=== PATIENT | female | born 1955 | race Caucasian/White ===

== ENCOUNTER → 2021-09-02 10:51 | Outpatient (BNVA) | payer OTHER, SELFPAY | PROVIDERS: PCP Physician Assistant; Visit Provider Obstetrics & Gynecology ==

== ENCOUNTER → 2021-11-25 09:30 | Outpatient (BNVA) | payer OTHER, SELFPAY | PROVIDERS: PCP Physician Assistant; Referring Provider Physician Assistant; Visit Provider Nurse Practitioner Family | DX: Z12.11 Encounter for screening for malignant neoplasm of colon (principal); K58.0 Irritable bowel syndrome with diarrhea | CPT/HCPCS: 99202 ==

== ENCOUNTER 2022-02-22 15:44 | Outpatient (REF) | payer OTHER, SELFPAY ==
[2022-02-22 16:40] LABS: Estimated Average Glucose 120 mg/dL; Hemoglobin A1c % 5.8 %
[2022-02-22 16:46] LABS: Hematocrit 38.3 % (37.0-47.0); Hemoglobin 12.8 g/dl (12.0-16.0); Mean Corpuscular HGB Conc 33.4 g/dl (31.0-35.0); Mean Corpuscular Hemoglobin 27.9 pg (27.0-33.0); Mean Corpuscular Volume 83.4 fL (80.0-98.0); Mean Platelet Volume 10.5 fL (9.4-12.3); Platelet Count 278 X10*3/uL (160-400); Red Blood Count 4.59 X10*6/uL (4.20-5.50); Red Cell Distribution Width 13.3 % (11.0-16.0); White Blood Count 6.6 X10*3/uL (4.8-10.8)
[2022-02-22 16:53] LABS: INTERNATIONAL NORM RATIO 1.1 (0.9-1.1)
[2022-02-22 17:03] LABS: Alanine Aminotransferase 14 U/L (0-31); Albumin Level 3.8 g/dL (3.5-5.0); Alkaline Phosphatase 94 U/L (39-117); Anion Gap 12 (12-20); Aspartate Amino Transferase 16 U/L (5-31); Bilirubin Total 0.5 mg/dL (0.0-1.0); Blood Urea Nitrogen 21 mg/dL (9-16); Calcium 8.9 mg/dL (8.4-10.2); Carbon Dioxide 25 mmol/L (22-29); Chloride 107 mmol/L (96-108); Cholesterol 134 mg/dL; Estimated Glomerular Filt Rate > 60; Glucose Fasting 126 mg/dL (60-99); HDL Cholesterol 44 mg/dL; LDL Cholesterol Calculated 77 mg/dl; Potassium 3.7 mmol/L (3.3-5.1); Sodium 140 mmol/L (135-145); Total Protein 6.4 g/dL (6.5-8.0); Triglycerides 69 mg/dL
[2022-02-22 17:26] LABS: TSH reflex Free T4 0.22 uIU/mL (0.32-4.0)
[2022-02-22 18:08] LABS: Free T4 (Free Thyroxine) 1.02 ng/dL (0.71-1.85)
== END 2022-02-22 15:45 | disposition home or self-care (01) ==
LOC: HO.LAB 15:44
PROVIDERS: PCP Physician Assistant; Visit Provider Physician Assistant
DX: Z01.818 Encounter for other preprocedural examination (principal); E04.1 Nontoxic single thyroid nodule; E78.2 Mixed hyperlipidemia; I10 Essential (primary) hypertension
CPT/HCPCS: 36415; 80048; 80053; 80061; 83036; 84439; 84443; 85027; 85610

== ENCOUNTER 2022-12-31 13:05 | Outpatient (REF) | payer MEDICARE, SELFPAY ==
--- NOTE | ~2022-12-31 | MM_ITS ---
EXAMINATION: MM SCREENING DIGITAL BREAST TOMOSYNTHESIS, BILATERAL CLINICAL INFORMATION: Screening. Asymptomatic. The lifetime risk of breast cancer based on the Tyrer-Cuzick Model is 9%. COMPARISON: Mammography: 12/12/2019 (new baseline) TECHNIQUE: Digital breast tomosynthesis is performed in both the craniocaudal and mediolateral oblique views along with computer-aided detection (CAD). Synthesized 2D images are generated from the tomosynthesis. Additional left CC view is provided. FINDINGS: There are scattered areas of fibroglandular density (ACR BI-RADS breast composition Category b). There are no significant masses, abnormal calcifications, or other abnormalities. Parenchymal pattern is similar to prior new baseline exam. There is no developing density or architectural abnormality. Again, there is biopsy clip marker mid upper outer left breast. The axilla and skin contours are unremarkable. No significant changes. MM/MM tomosynthesis screening BI IMPRESSION: No mammographic evidence of malignancy. ASSESSMENT: BI-RADS 1: Negative RECOMMENDATION: Routine annual mammography screening. This patient's information was entered into a reminder system with a target due date for their next mammogram.
== END 2022-12-31 13:06 | disposition home or self-care (01) ==
LOC: HO.MAMMO 13:05
PROVIDERS: PCP Physician Assistant; Visit Provider Physician Assistant
DX: Z12.31 Encounter for screening mammogram for malignant neoplasm of breast (principal)
CPT/HCPCS: 77063; 77067

== ENCOUNTER 2023-01-11 19:19 | Emergency (ER) | payer MEDICARE, SELFPAY ==
[2023-01-11 19:53] VITALS: BP 145/81; PULSE 66; RESP 16; TEMP 36.7; O2SAT 96; BMI 34.4
--- NOTE | 2023-01-11 19:55 | ED_ITS ---
HPI - General Adult General Chief complaint: General Medical <LOUISE Adams - Last Filed: 01/11/23 19:58> Stated complaint: Facial swelling <LOUISE Adams - Last Filed: 01/11/23 19:58> Time Seen by Provider: 01/12/23 00:43 <LOUISE Adams - Last Filed: 01/11/23 19:58> Source: patient, RN notes reviewed and old records reviewed <Danny Self - Last Filed: 01/12/23 01:20> Mode of arrival: ambulatory <Danny Self - Last Filed: 01/12/23 01:20> Limitations: no limitations <Danny Self - Last Filed: 01/12/23 01:20> History of Present Illness HPI narrative: 67-year-old female past medical history significant for hypertension, polyarthralgias, hypothyroidism, hyperlipidemia presents for evaluation of reported facial swelling Patient reports that her primary doctor started her on meloxicam 4 days ago She reports that she looked in the mirror today and felt as though she had swelling in between her eyebrows and underneath both eyes. She also fell as if she has swelling to the left side of her neck No difficulty breathing, swallowing She denies any other symptoms The patient reports that she had previously been on lisinopril but has not been on it for several years <Danny Self - Last Filed: 01/12/23 01:20> Related Data Home medications: Home Medications Medication Instructions Recorded Confirmed ketoconazole 2 % topical cream 1 appl topical DAILY 08/21/20 12/29/22 Previous Rx's Medication Instructions Recorded diaper,brief,adult,disposable #14 ea 06/26/20 (Briefs, Adult-Extra Large) amlodipine 10 mg tablet 10 mg PO DAILY #90 tabs 06/24/22 aspirin 81 mg tablet,delayed 81 mg PO DAILY #90 tabs 06/24/22 release atorvastatin 20 mg tablet 20 mg PO DAILY #90 tabs 06/24/22 metoprolol succinate 25 mg 25 mg PO DAILY #90 tabs 06/24/22 tablet,extended release 24 hr paroxetine HCl 10 mg tablet 10 mg PO QAM #90 tabs 10/19/22 bisacodyl 5 mg tablet,delayed 10 mg PO ONCE 1 day #2 tabs 12/06/22 release (Dulcolax (bisacodyl)) polyethylene glycol 3350 17 238 g PO ONCE #238 grams 12/06/22 gram/dose oral powder (Miralax) fluticasone propionate 50 1 spray intranasal DAILY 30 days 12/29/22 mcg/actuation nasal #100 mL spray,suspension (Flonase Allergy Relief) meloxicam 15 mg tablet 15 mg PO DAILY #30 tabs 12/29/22 <LOUISE Adams - Last Filed: 01/11/23 19:58> Allergies/adverse reactions: Allergies Allergy/AdvReac Type Severity Reaction Status Date / Time lisinopril Allergy Unknown tachycardia Verified 12/29/22 14:40 <LOUISE Adams - Last Filed: 01/11/23 19:58> Review of Systems Review of Systems: Patient reports facial swelling <Danny Self - Last Filed: 01/12/23 01:20> Constitutional: Constitutional: Reports as per HPI, Denies chills, Denies fatigue, Denies fever(s) and Denies headache(s) <Danny Self - Last Filed: 01/12/23 01:20> ENT: Denies headache(s) <Danny Self - Last Filed: 01/12/23 01:20> Cardiovascular: Cardiovascular: Denies chest pain and Denies dyspnea <Danny Self - Last Filed: 01/12/23 01:20> Respiratory: Respiratory: Denies cough and Denies dyspnea <Danny Self - Last Filed: 01/12/23 01:20> Gastrointestinal: Gastrointestinal: Denies abdominal pain, Denies constipation and Denies vomiting <Danny Self - Last Filed: 01/12/23 01:20> Genitourinary: Genitourinary: Denies dysuria <Danny Self - Last Filed: 01/12/23 01:20> Neurologic: Denies headache(s) and Denies focal weakness <Danny Self - Last Filed: 01/12/23 01:20> Endocrine: Endocrine: Denies fatigue <Danny Self - Last Filed: 01/12/23 01:20> PMFSH Past Medical History Medical History: Medical History Anxiety COVID-19 vaccine series completed Depression with anxiety Elevated cholesterol Hepatitis C HTN (hypertension) IBS (irritable bowel syndrome) Thyroid nodule <LOUISE Adams - Last Filed: 01/11/23 19:58> Surgical History: Surgical History History of removal of cyst Ruptured tubal <LOUISE Adams - Last Filed: 01/11/23 19:58> Family History Family History: Family History Father CHF (congestive heart failure) Diabetes Hypertension Skin cancer Mother Diabetes Hypertension Fibromyalgia Maternal Grandmother TIA (transient ischemic attack) Alzheimers disease Mental health disorder <LOUISE Adams - Last Filed: 01/11/23 19:58> Social History Social History: Social History Housing: House Alcohol intake: never Patient Tobacco Use Status: Never used Tobacco Tobacco use type: Cigarette e-Cigarette/Vaping Use: Never Used Second Hand Smoke Exposure: No Advance Directives: No Advance Directives Information Provided: No service: No Current occupational status: employed Cognitive needs: No Hearing needs: No Vision needs: No <LOUISE Adams - Last Filed: 01/11/23 19:58> Physical Exam ED Vital Signs: Vital Signs - 24 hr 01/11/23 19:53 01/11/23 21:50 Temperature 98.0 F 97.9 F Pulse Rate 66 70 Respiratory Rate 16 18 Blood Pressure 145/81 H 159/66 H Pulse Oximetry 96 98 Oxygen Delivery Method Room Air Room Air BMI result Body Mass Index 34.4 <LOUISE Adams Last Filed: 01/11/23 19:58> Vital Signs - 24 hr 01/11/23 19:53 01/11/23 21:50 Temperature 98.0 F 97.9 F Pulse Rate 66 70 Respiratory Rate 16 18 Blood Pressure 145/81 H 159/66 H Pulse Oximetry 96 98 Oxygen Delivery Method Room Air Room Air BMI result Body Mass Index 34.4 < Last Filed: 01/12/23 01:20> Const Other: No objective findings of edema to the face or neck in the area of the patient's concern. No oral, perioral or retropharyngeal edema < Last Filed: 01/12/23 01:20> General: healthy appearing, comfortable, no acute distress, alert and awake < Last Filed: 01/12/23 01:20> Nutritional Appearance: well nourished < Last Filed: 01/12/23 01:20> Orientation/consciousness: patient oriented x3 < Last Filed: 01/12/23 01:20> HENMT Head: Yes normocephalic and Yes atraumatic < Last Filed: 01/12/23 01:20> Throat: Yes posterior oropharynx normal < Last Filed: 01/12/23 01:20> Eyes Eyelids: Yes eyelids normal < Last Filed: 01/12/23 01:20> Conjunctivae: conjunctivae normal < Last Filed: 01/12/23 01:20> Sclerae: sclerae normal < Last Filed: 01/12/23 01:20> Corneas: corneas normal < Last Filed: 01/12/23 01:20> Pupils: Equal, round and reactive pupils present < Last Filed: 01/12/23 01:20> EOM: EOMs intact bilaterally < Last Filed: 01/12/23 01:20> Neck Neck: Yes full ROM < Last Filed: 01/12/23 01:20> Resp Effort & Inspection: normal respiratory effort, able to speak in complete sentences, no audible wheezes, not labored and no stridor < Last Filed: 01/12/23 01:20> Auscultation: clear to auscultation bilaterally < Last Filed: 01/12/23 01:20> Cardio Rate: regular rate <Danny Self - Last Filed: 01/12/23 01:20> Rhythm: regular rhythm <Danny Self - Last Filed: 01/12/23 01:20> GI Inspection: No distended <Danny Self Last Filed: 01/12/23 01:20> Palpation (GI): Soft to palpation, not firm, nontender, no guarding and not rigid <Danny Self - Last Filed: 01/12/23 01:20> Auscultation: normoactive bowel sounds <Danny Self - Last Filed: 01/12/23 01:20> Skin General skin exam: no rashes or lesions noted and elasticity normal <Dannyelva Self Last Filed: 01/12/23 01:20> Neuro General: patient oriented x3 <Danny Self - Last Filed: 01/12/23 01:20> Cranial nerves: Yes CN's II-XII intact bilaterally, Yes Equal, round and reactive pupils present and Yes Bilaterally intact EOM present <Danny Self - Last Filed: 01/12/23 01:20> Cognition (Neuro): normal cognition <Danny Self Last Filed: 01/12/23 01:20> Extrem Other: Moving all extremities well without any obvious deformities <Danny Self Last Filed: 01/12/23 01:20> Course Course Course Narrative: RME - 67-year-old female with history of HTN, HLD, obesity, polyarthralgia, anxiety who presents to the ER for evaluation of generalized facial swelling that she noticed earlier today. She also reports a full sensation of her supraclavicular area. No oral swelling but feels abnormality in her jaw, no dental pain. She reports recently being started on meloxicam by her doctor. She has been taking it for 4 days. She is worried because label said not to mix with her paroxitine. No appreciatd swelling in triage. Airway patent. Likely anxiety related? re-evaluate in EM <LOUISE Adams - Last Filed: 01/11/23 19:58> Medical Decision Making Medical Decision Making MDM Narrative: [age] female presents for evaluation of reported facial swelling. I do not appreciate any facial swelling on exam. The triage provider also did not notice any appreciable facial swelling. She has been in the ER for over 5 hours. Airway is widely patent, no difficulty breathing or swallowing. At this time for the patient is safe for discharge. I advised the patient to stop taking her meloxicam and follow-up with her PCP <Danny Self - Last Filed: 01/12/23 01:20> Differential Diagnosis Facial swelling Allergic reaction Anaphylaxis Angioedema <Danny Self - Last Filed: 01/12/23 01:20> Discharge Plan Discharge Clinical Impression: Facial swelling <LOUISE Adams - Last Filed: 01/11/23 19:58> Patient Disposition: Home, Self-Care <LOUISE Adams - Last Filed: 01/11/23 19:58> Instructions: General Allergic Reaction (ED) <LOUISE Adams - Last Filed: 01/11/23 19:58> Additional Instructions: Your physical exam has no evidence of anaphylaxis or angioedema. If you feel that you are having facial swelling related to meloxicam, you should stop taking the meloxicam You may take Benadryl if he notice any further swelling, itching or rash Return to the ER if he develop any difficulty breathing or swallowing <LOUISE Adams - Last Filed: 01/11/23 19:58> Prescriptions: No Action (DME) Briefs, Adult-Extra Large Misc See Rx Instructions .ROUTE .MEDSUPPLY Qty: 14 2RF Rx Instructions: As directed paroxetine HCl 10 mg tablet 10 mg PO QAM Qty: 90 1RF bisacodyl [Dulcolax (bisacodyl)] 5 mg tablet,delayed release (DR/EC) 10 mg PO ONCE 1 Days Qty: 2 0RF Rx Instructions: take 2 tabs at noon the day before your colonoscopy polyethylene glycol 3350 [Miralax] 17 gram/dose powder 238 g PO ONCE Qty: 238 0RF Rx Instructions: As directed by gastroenterology department at [facility] ketoconazole 2 % cream 1 appl topical DAILY amlodipine 10 mg tablet 10 mg PO DAILY Qty: 90 1RF atorvastatin 20 mg tablet 20 mg PO DAILY Qty: 90 1RF aspirin 81 mg tablet,delayed release (DR/EC) 81 mg PO DAILY Qty: 90 1RF metoprolol succinate 25 mg tablet extended release 24 hr 25 mg PO DAILY Qty: 90 1RF meloxicam 15 mg tablet 15 mg PO DAILY Qty: 30 3RF fluticasone propionate [Flonase Allergy Relief] 50 mcg/actuation spray,suspension 1 spray intranasal DAILY 30 Days Qty: 100 3RF Rx Instructions: administer into each nostril <LOUISE Adams - Last Filed: 01/11/23 19:58>
[2023-01-11 21:50] VITALS: BP 159/66; PULSE 70; RESP 18; TEMP 36.6; O2SAT 98
--- NOTE | 2023-01-11 22:46 | PC.NURSE ---
pt resting quietly at this timw, airway patent, managing own secretions, SpO2 98% on RA. pt awaiting ED provider assignment
[2023-01-12] VITALS: BP 129/75; PULSE 68; RESP 16; TEMP 36.9; O2SAT 94
--- NOTE | 2023-01-12 02:12 | PC.NURSE ---
pt has no swelling to the face, or oral airway visablly pt is talking in full sentences, no s/s of distress and feels ready for discharge. steady giat. skin pink warm and dry.
== END 2023-01-12 02:15 | disposition home or self-care (01) ==
PROVIDERS: Emergency Provider Emergency Medicine; PCP Physician Assistant
DX: R22.9 Localized swelling, mass and lump, unspecified (principal); Z79.899 Other long term (current) drug therapy
CPT/HCPCS: 99282; 99283

== ENCOUNTER → 2023-02-16 14:42 | Outpatient (BNVA) | payer MEDICARE, SELFPAY | PROVIDERS: PCP Physician Assistant; Visit Provider Obstetrics & Gynecology ==

== ENCOUNTER 2023-02-24 10:31 | Outpatient (REF) | payer MEDICARE, SELFPAY ==
--- NOTE | ~2023-02-24 | XR_ITS ---
EXAMINATION: XR KNEE, RIGHT CLINICAL INFORMATION: Right knee pain. COMPARISON: None available. TECHNIQUE: Three views of the right knee. FINDINGS: Bones and soft tissues appear unremarkable. No fracture or joint effusion appreciated. Alignment is anatomic. Joint spaces appear maintained. No abnormal soft tissue calcification. XR/XR knee RT 3V IMPRESSION: Unremarkable plain film examination of the right knee.
--- NOTE | ~2023-02-24 | XR_ITS ---
EXAMINATION: XR HIP, LEFT CLINICAL INFORMATION: COMPARISON: None available. TECHNIQUE: Two views of the left hip. FINDINGS: Bones and soft tissues are normal. No fracture. Alignment is anatomic. Hip joint space is maintained. XR/XR hip LT min 2V IMPRESSION: Normal left hip.
--- NOTE | ~2023-02-24 | XR_ITS ---
EXAMINATION: XR HIP, RIGHT CLINICAL INFORMATION: Right hip pain. COMPARISON: None available. TECHNIQUE: Two views of the right hip. FINDINGS: Bones and soft tissues are normal. No fracture. Alignment is anatomic. Hip joint space is maintained. XR/XR hip RT min 2V IMPRESSION: Normal right hip.
--- NOTE | ~2023-02-24 | XR_ITS ---
EXAMINATION: XR KNEE, LEFT CLINICAL INFORMATION: Left knee pain. COMPARISON: None available. TECHNIQUE: Three views of the left knee. FINDINGS: Examination demonstrates mild osteoarthritis of the left knee predominantly involving the medial and patellofemoral compartments, with joint space narrowing and osteophyte formation. No suprapatellar fluid is seen. Amorphous calcification projects over the proximal fibular metaphysis. No acute fracture or dislocation is seen. XR/XR knee LT 3V IMPRESSION: Mild osteoarthritis of the left knee. Amorphous calcification of the proximal fibular metaphysis. Differential diagnosis includes, but is not limited to, enchondroma, bone infarct, etc.
== END 2023-02-24 10:32 | disposition home or self-care (01) ==
LOC: HO.XRAY 10:31
PROVIDERS: PCP Physician Assistant; Visit Provider Internal Medicine Rheumatology
DX: M25.551 Pain in right hip (principal); M25.552 Pain in left hip; M25.561 Pain in right knee; M25.562 Pain in left knee; M25.50 Pain in unspecified joint; M79.7 Fibromyalgia; G89.29 Other chronic pain; Z86.19 Personal history of other infectious and parasitic diseases
CPT/HCPCS: 73502; 73562; 99202

== ENCOUNTER 2023-02-24 12:09 | Outpatient (REF) | payer MEDICARE, SELFPAY ==
[2023-02-24 13:40] LABS: Hematocrit 39.4 % (37.0-47.0); Hemoglobin 13.2 g/dl (12.0-16.0); Mean Corpuscular HGB Conc 33.5 g/dl (31.0-35.0); Mean Corpuscular Volume 83.5 fL (80.0-98.0); Platelet Count 293 X10*3/uL (160-400); Red Blood Count 4.72 X10*6/uL (4.20-5.50); Red Cell Distribution Width 13.3 % (11.0-16.0); White Blood Count 6.3 X10*3/uL (4.8-10.8)
[2023-02-24 14:18] LABS: Erythrocyte Sedimentation Rate 23 MM/HR (0-20)
[2023-02-24 14:21] LABS: Alanine Aminotransferase 12 U/L (0-31); Albumin Level 3.8 g/dL (3.5-5.0); Alkaline Phosphatase 87 U/L (39-117); Anion Gap 16 (12-20); Aspartate Amino Transferase 16 U/L (5-31); Bilirubin Total 0.4 mg/dL (0.0-1.0); Blood Urea Nitrogen 16 mg/dL (9-16); C Reactive Protein 0.13 mg/dL (< or = 0.50); Calcium 9.3 mg/dL (8.4-10.2); Carbon Dioxide 26 mmol/L (22-29); Chloride 105 mmol/L (96-108); Cholesterol 134 mg/dL; Estimated Glomerular Filt Rate > 60; Glucose Fasting 105 mg/dL (60-99); HDL Cholesterol 49 mg/dL; LDL Cholesterol Calculated 73 mg/dl; Magnesium 1.5 mg/dL (1.6-2.6); Potassium 3.6 mmol/L (3.3-5.1); Sodium 143 mmol/L (135-145); Total Protein 6.6 g/dL (6.5-8.0); Triglycerides 63 mg/dL
[2023-02-24 14:35] LABS: TSH reflex Free T4 0.24 uIU/mL (0.32-4.0)
[2023-02-24 15:26] LABS: Free T4 (Free Thyroxine) 0.99 ng/dL (0.71-1.85)
== END 2023-02-24 12:10 | disposition home or self-care (01) ==
LOC: HO.10HDL 12:09
PROVIDERS: Physician Assistant; Visit Provider Internal Medicine Rheumatology
DX: M25.50 Pain in unspecified joint (principal); E78.2 Mixed hyperlipidemia; E04.1 Nontoxic single thyroid nodule
CPT/HCPCS: 36415; 80053; 80061; 83735; 84439; 84443; 85027; 85652; 86140

== ENCOUNTER 2023-05-02 13:35 | Outpatient (AMB) | payer MEDICARE, SELFPAY ==
--- NOTE | 2023-05-02 13:37 | MHC.PC.OV ---
Vital Signs 05/02/23 13:38 Height 5 ft 10 in Weight 243 lb 8 oz BMI 34.9 BP 122/86 Blood Pressure Location Lt brachial Position Sitting Pulse 74 Pulse Source Pulse Oximeter Pulse Oximetry (%) 95 Oxygen Delivery Method Room Air Intake Visit Reasons: Annual Exam Intake Note: Patient is here today for a physical. Fleet Manager Required: No Accompanied by: Self / Same As Patient Allergies meloxicam Allergy (Intermediate, Verified 05/02/23 13:50) swelling lisinopril Allergy (Unknown, Verified 05/02/23 13:50) tachycardia Medication List - Last Reconciled 05/02/23 by Aron Lambert PA-C amlodipine 10 mg PO DAILY aspirin 81 mg PO DAILY atorvastatin 20 mg PO DAILY bisacodyl (Dulcolax (bisacodyl)) 10 mg (2 x 5 mg) PO ONCE 1 day diaper,brief,adult,disposable (Briefs, Adult-Extra Large) As directed fluticasone propionate 50 mcg/actuation (Flonase Allergy Relief) 1 spray intranasal DAILY 30 days metoprolol succinate ER 25 mg PO DAILY paroxetine HCl 10 mg PO QAM polyethylene glycol 3350 (Miralax) 238 grams PO ONCE Tobacco use date assessed: 12/29/22 Fall risk assessment: No Falls in past year Last assessed Fall Risk: 05/02/23 Dental Screening Dental Screen Date: 05/02/23 Did you have a dental visit in the last 12 months?: Yes Did you have a dental problem in the last 6 months where you did not have access to dental care?: No Was dental information given to patient?: Patient has dentist HPI Annual Exam HPI Details Patient is a 67-year-old female here today for a Follow-up visit . Patient has a past medical history significant for essential hypertension, obesity, Thyroid nodule. .. -->Concerns Reports having bilateral knee pain over the last several months worsening. Also reports bilateral hip, wrist and hand pain .? She denies any trauma to her joints.? She does report at times having very swollen joints ? She does use Tylenol and naproxen with only little relief of her knee pain.? Has seen Rheumatology in x-rays showing normal hips though did have mild arthritis in her knees. She does report ports she was told she has fibromyalgia to which her mother also does have fibromyalgia as well. She is interested in aquatic therapy. CHRONIC MEDICAL CONDITIONS---> ? .. ? HTN: Report systolic below 130s. Denies any headaches, chest pain, shortness of breath. ? .. ? Anxiety: Report paxil 10mg is working great for her mood swings and agitation. . Obesity:? Has noted some weight loss since last office visit.? She does report she has been trying to work on diet to reduce her weight. ? .. ? Thyroid nodules:? Patient has lost follow-up with endocrinology. .? Most recent TSH at 0.22.? .? Breast cancer screening:? Mammogram done December 2022 BI-RADS 1 .. Colon cancer screening: Has upcoming appointment for colonoscopy Instrumentation Instructor: Had follow-up salesperson pianos and organs no further Pap smears needed. Vaccines:: Up-to-date with COVID vaccine, tetanus vaccine, considering shingles vaccine, needs pneumonia vaccine (declines at this time) Laboratory Tests 02/22/22 02/22/22 02/22/22 16:00 16:00 16:00 RBC 4.59 Hgb 12.8 ESR Creatinine 0.78 Fasting Glucose 126 H Hemoglobin A1c % 5.8 Cholesterol 134 LDL Cholesterol, C alc TSH 0.22 L Free T4 02/24/23 02/24/23 12:14 12:16 RBC Hgb ESR 23 H Creatinine 0.84 Fasting Glucose 105 H Hemoglobin A1c % Cholesterol 134 LDL Cholesterol, C alc 73 TSH 0.24 L Free T4 0.99 PFSH Medical History Anxiety COVID-19 COVID-19 vaccine series completed Depression with anxiety Elevated cholesterol Hepatitis C HTN (hypertension) IBS (irritable bowel syndrome) Onychomycosis Thyroid nodule Surgical History History of removal of cyst Ruptured tubal Family History Father CHF (congestive heart failure) Diabetes Hypertension Skin cancer Mother Diabetes Hypertension Fibromyalgia Maternal Grandmother TIA (transient ischemic attack) Alzheimers disease Mental health disorder Social History (Updated 05/02/23 @ 14:13 by Aron Lambert PA-C) Housing: House Alcohol intake: never Patient Tobacco Use Status: Never used Tobacco Tobacco use type: Cigarette e-Cigarette/Vaping Use: Never Used Second Hand Smoke Exposure: No service: No Current occupational status: disabled 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 Will Mckeon, Delia Loving, Guilherme Mchugh and colleagues, with an educational irvin from [employer]. Review of Systems Const Denies body aches, Denies chills, Denies excessive sweating, Denies fatigue, Denies fever(s) and Denies headache(s) Eyes Denies blurry vision ENT Denies dysphagia, Denies vertigo, Denies dizziness, Denies headache(s), Denies hearing loss and Denies tinnitus Card Denies chest pain, Denies chest pain with activity, Denies syncope, Denies irregular heart rhythm and Denies dyspnea Resp Denies chest congestion, Denies cough, Denies hemoptysis, Denies dyspnea and Denies wheezing GI Denies abdominal pain, Denies melena, Denies hematochezia, Denies coffee ground emesis, Denies dysphagia, Denies diarrhea, Denies nausea and Denies vomiting Denies urinary frequency, Denies dysuria, Denies urinary hesitancy and Denies urinary urgency Musc Denies arthralgias, Denies limited range of motion, Denies muscle cramps and Denies muscle weakness Skin/Breast Denies rash and Denies skin ulcer Neuro Denies Abnormal speech present, Denies confusion, Denies vertigo, Denies dizziness, Denies syncope, Denies headache(s), Denies memory loss and Denies seizure-like activity Psych Denies anxiety, Denies confusion, Denies depression, Denies memory loss, Denies panic attacks and Denies paranoia Endo Denies excessive sweating, Denies fatigue, Denies flushing, Denies polydipsia and Denies polyuria Aller/Immun Denies wheezing Physical exam (Primary Care) Vital Signs: Last Vital Signs Pulse 74 05/02/23 13:38 BP 122/86 05/02/23 13:38 Pulse Ox 95 05/02/23 13:38 Oxygen Delivery Method Room Air 05/02/23 13:38 BMI result Body Mass Index 34.9 BMI Assessment/Plan discussion: High Tobacco/Smoking Status: Tobacco use Status Tobacco use date assessed 12/29/22 05/02/23 13:38 Patient Tobacco Use Status Never used Tobacco 05/02/23 14:13 Tobacco use type Cigarette 05/02/23 14:13 e-Cigarette/Vaping Use Never Used 05/02/23 14:13 Thrive Assessment: Date of Thrive Assessment Date Thrive assessed 12/29/22 05/02/23 13:38 Const Other: OBESE General: cooperative, comfortable, no acute distress, alert and awake; No confusion Orientation/consciousness: oriented to person, oriented to place, patient oriented x3 and No confusion HENMT Head: Yes normocephalic Ears: external ears normal and TM's normal bilaterally Face and sinus: No sinus tenderness Mouth: Normal oral and palatal mucosa present and tongue normal Teeth and gingiva: dentition normal and gingiva normal Throat: Yes posterior oropharynx normal, Yes tonsils normal and Yes uvula midline Eyes Conjunctivae: conjunctivae normal Sclerae: sclerae normal Pupils: Equal, round and reactive pupils present EOM: EOMs intact bilaterally Direct Ophthalmoscopy: No no photophobia Neck Neck: Yes no lymphadenopathy, No tender and Yes no JVD Thyroid: Thyroid normal Carotids: no bruits Chest Chest palpation & inspection: no tenderness Resp Effort & Inspection: normal respiratory effort, no audible wheezes, not labored and no stridor Auscultation: no crackles, no rales, no rhonchi and no wheezes Cardio Jugular venous distension: no JVD Rate: regular rate, not bradycardic and not tachycardic Rhythm: regular rhythm Bruits: no carotid bruits Peripheral pulses: Peripheral pulses 2+ throughout GI Inspection: Yes normal to inspection, No abdominal wall ecchymosis and No visible herniation Palpation (GI): Soft to palpation, nontender, no guarding, not rigid and No hepatosplenomegaly present Auscultation: normoactive bowel sounds General: Yes no CVA tenderness Back/Spine/Pelvis Back: no CVA tenderness and No back tenderness Cervical Spine: cervical ROM normal Thoracic/Lumbar Spine: thoracic and lumbar spine normal to inspection, straight leg raise negative bilaterally, No thoraco-lumbar ROM limited and No lumbar spinal tenderness Skin Lesions: no lesions Rashes: no rashes Wounds: no wounds Neuro General: oriented to person, oriented to place, patient oriented x3, CN's II-XI intact bilaterally and No confusion Cranial nerves: Yes Equal, round and reactive pupils present and Yes Normal accommodation reflex present Cognition (Neuro): normal cognition Speech: No Abnormal speech present Gait exam (Neuro): Normal gait present Motor exam (neuro): 5/5 motor strength present throughout Extrem Right upper extremity: full ROM; no cyanosis Left upper extremity: full ROM; no cyanosis Right lower extremity: no edema Left lower extremity: no edema Psych Appearance: grossly normal Mental Status: mental status grossly normal Affect: normal affect Attitude: cooperative Thought process: Normal thought process present Assessment and Plan Assessment & Plan (1) Annual physical exam: Code(s): Z00.00 - Encounter for general adult medical examination without abnormal findings (2) Low TSH level: Code(s): R79.89 - Other specified abnormal findings of blood chemistry Plan: Continue to follow TSH. T4 has been normal. Has history of thyroid nodules (3) HTN (hypertension): Code(s): I10 - Essential (primary) hypertension Qualifiers: Hypertension type: essential hypertension Qualified Code(s): I10 - Essential (primary) hypertension Plan: Patient's blood pressure acceptable today in office. Will continue her current dose of amlodipine and metoprolol with goal blood pressure to remain below 140/90 (4) HLD (hyperlipidemia): Code(s): E78.5 - Hyperlipidemia, unspecified Qualifiers: Hyperlipidemia type: mixed hyperlipidemia Qualified Code(s): E78.2 - Mixed hyperlipidemia Plan: Patient's most recent lipid panel showing excellent control over total cholesterol and LDL. She will try to hold her statin and see if her polyarthralgia pains get better. (5) Obese: Code(s): E66.9 - Obesity, unspecified Qualifiers: Body mass index: BMI 34.0-34.9 Obesity classification: adult class 1 (BMI 30 - 34.9) Obesity type: due to excess calories Serious obesity comorbidity presence: without serious comorbidity Qualified Code(s): E66.09 - Other obesity due to excess calories; Z68.34 - Body mass index [BMI] 34.0-34.9, adult Plan: Patient does understand her BMI is over 30 will try to be more physically active and adapt to better eating habits to reduce her weight. (6) Fibromyalgia: Code(s): M79.7 - Fibromyalgia Plan: Patient continues to report widespread pain at trigger points consistent with fibromyalgia. Has followed up with Rheumatology whom recommends weight reduction. Continue SSRI therapy and we did discuss possibly cognitive behavioral therapy though patient declines. She would like to do aquatic therapy to do nonweightbearing exercises. (7) Polyarthralgia: Code(s): M25.50 - Pain in unspecified joint Plan: As above (8) Knee osteoarthritis: Code(s): M17.9 - Osteoarthritis of knee, unspecified Qualifiers: Laterality: bilateral Osteoarthritis type: primary Qualified Code(s): M17.0 - Bilateral primary osteoarthritis of knee Plan: Patient's most recent x-ray showing mild arthritis in her knees. (9) GABRIEL (generalized anxiety disorder): Code(s): F41.1 - Generalized anxiety disorder Plan: Patient continues on Paxil 10 mg which has worked wonders for her mood and anxiety. Orders: Orders Comprehensive [place]. Panel Fast 6 Months I10 - Essential (primary) hypertension Lipid Panel 6 Months E78.2 - Mixed hyperlipidemia TSH reflex Free T4 6 Months R79.89 - Other specified abnormal findings of blood chemistry Microalbumin, Random (w Creat) 05/02/23 I10 - Essential (primary) hypertension PT Evaluation and Treatment 05/02/23 M25.50 - Pain in unspecified joint Cyclic Citrullinated Peptide 05/02/23 M25.50 - Pain in unspecified joint Rheumatoid Factor 05/02/23 M25.50 - Pain in unspecified joint Anti DNA DS Antibody 05/02/23 M25.50 - Pain in unspecified joint Medications: Refilled paroxetine HCl 10 mg PO QAM 90 tabs 2RF F41.1 - Generalized anxiety disorder Coding Level of Care Code Est Pt Prev Care >65y(16513) Diagnoses Annual physical exam Z00.00 Low TSH level R79.89 HTN (hypertension) I10 Hypertension type: essential hypertension HLD (hyperlipidemia) E78.2 Hyperlipidemia type: mixed hyperlipidemia Obese E66.09; Z68.34 Body mass index: BMI 34.0-34.9 Obesity classification: adult class 1 (BMI 30 - 34.9) Obesity type: due to excess calories Serious obesity comorbidity presence: without serious comorbidity Fibromyalgia M79.7 Polyarthralgia M25.50 Knee osteoarthritis M17.0 Laterality: bilateral Osteoarthritis type: primary GABRIEL (generalized anxiety disorder) F41.1
[2023-05-02 13:38] VITALS: BP 122/86; PULSE 74; O2SAT 95; BMI 34.9
== END 2023-05-02 14:24 | disposition home or self-care (01) ==
PROVIDERS: PCP Physician Assistant; Visit Provider Physician Assistant
DX: Z00.00 Encounter for general adult medical examination without abnormal findings (principal); I10 Essential (primary) hypertension; E66.09 Other obesity due to excess calories; Z68.34 Body mass index [BMI] 34.0-34.9, adult; R79.89 Other specified abnormal findings of blood chemistry; E78.2 Mixed hyperlipidemia; M79.7 Fibromyalgia; M25.50 Pain in unspecified joint; M17.0 Bilateral primary osteoarthritis of knee; F41.1 Generalized anxiety disorder
CPT/HCPCS: 99397

== ENCOUNTER 2023-05-23 11:59 | Outpatient (AMB) | payer MEDICARE, SELFPAY ==
--- NOTE | 2023-05-23 12:00 | MHC.PC.OV ---
Vital Signs 05/23/23 12:02 Height 51 ft 10 in Weight 244 lb 4 oz BMI 0.4 BP 118/66 Blood Pressure Location Lt brachial Position Sitting Pulse 74 Pulse Source Pulse Oximeter Pulse Oximetry (%) 93 Oxygen Delivery Method Room Air Intake Visit Reasons: fibromyalgia, diarrhea Intake Note: Patient is here to follow up on fibromyalgia, Diarrhea. Manager Industrial Required: No Authorization Specialist: Not Required per policy Accompanied by: Self / Same As Patient Allergies meloxicam Allergy (Intermediate, Verified 05/23/23 12:38) swelling lisinopril Allergy (Unknown, Verified 05/23/23 12:38) tachycardia atorvastatin Adverse Reaction (Intermediate, Verified 05/23/23 12:38) Swelling Medication List - Last Reconciled 05/23/23 by DARRICK Gonsales amlodipine 10 mg PO DAILY aspirin 81 mg PO DAILY bisacodyl (Dulcolax (bisacodyl)) 10 mg (2 x 5 mg) PO ONCE 1 day diaper,brief,adult,disposable (Briefs, Adult-Extra Large) As directed fluticasone propionate 50 mcg/actuation (Flonase Allergy Relief) 1 spray intranasal DAILY 30 days metoprolol succinate ER 25 mg PO DAILY paroxetine HCl 20 mg PO DAILY polyethylene glycol 3350 (Miralax) 238 grams PO ONCE Tobacco use date assessed: 05/23/23 Fall risk assessment: No Falls in past year Last assessed Fall Risk: 05/23/23 Dental Screening Dental Screen Date: 05/23/23 Did you have a dental visit in the last 12 months?: Yes Did you have a dental problem in the last 6 months where you did not have access to dental care?: No Was dental information given to patient?: Patient has dentist HPI HPI Comments History of Present Illness Details 67 year female past medical history significant for hypertension, hyperlipidemia, generalized anxiety disorder, poly on ground gel, fibromyalgia and osteoarthritis of bilateral knees. Patient of Luis Alfredo Lambert last seen in April presents today for muscle aches and pains. Patient reports she was taking off her statin due to swelling, reports the swelling has resolved however after discontinuing the statin she feels she developed worsening muscle pain and joint pain. Patient reports that she increased her dose paroxetine to 20 mg daily due to her joint and muscle pain has heard her PCP previously discussed if she needed an increase cheek increased to 20 mg daily. Patient states since increasing the paroxetine and has helped with the muscle pain related to her fibromyalgia. New Rx sent for paroxetine 20 mg daily. Patient reports none weeks of diarrhea acute have been once a day to up to multiple times a day with a lot gas. Patient reports at times the diarrhea you will be slimy. Denies any recent antibiotic use or recent viral illness. States will get general abdominal cramping when she is about to diarrhea. Denies any blood in the stool. Patient reports has upcoming colonoscopy next month. [facility] Medical History Anxiety COVID-19 COVID-19 vaccine series completed Depression with anxiety Elevated cholesterol Hepatitis C HTN (hypertension) IBS (irritable bowel syndrome) Onychomycosis Thyroid nodule Surgical History Ruptured tubal History of removal of cyst Family History Father CHF (congestive heart failure) Diabetes Hypertension Skin cancer Mother Diabetes Hypertension Fibromyalgia Maternal Grandmother TIA (transient ischemic attack) Alzheimers disease Mental health disorder Social History Housing: House Alcohol intake: never Patient Tobacco Use Status: Never used Tobacco Tobacco use type: Cigarette e-Cigarette/Vaping Use: Never Used Second Hand Smoke Exposure: No service: No Current occupational status: disabled 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 Will Mckeon, Delia Lvoing, Guilherme Mchugh and colleagues, with an educational irvin from [employer]. Review of Systems Const Denies chills, Denies fatigue, Denies fever(s) and Denies poor appetite Eyes Denies no additional complaints ENT Reports Normal hearing present Card Denies chest pain, Denies syncope, Denies rapid heart rate and Denies dyspnea Resp Denies cough and Denies dyspnea GI Denies change in stool character, Denies constipation, Denies diarrhea, Denies nausea and Denies vomiting Denies urinary frequency, Denies dysuria and Denies urinary urgency Neuro Reports Normal hearing present, Denies confusion and Denies syncope Psych Denies confusion Endo Denies fatigue Physical exam (Primary Care) Vital Signs: Last Vital Signs Pulse 74 05/23/23 12:02 BP 118/66 05/23/23 12:02 Pulse Ox 93 05/23/23 12:02 Oxygen Delivery Method Room Air 05/23/23 12:02 BMI result Body Mass Index 0.4 Tobacco/Smoking Status: Tobacco use Status Tobacco use date assessed 05/23/23 05/23/23 12:10 Patient Tobacco Use Status Never used Tobacco 05/23/23 12:10 Tobacco use type Cigarette 05/23/23 12:10 e-Cigarette/Vaping Use Never Used 05/23/23 12:10 Thrive Assessment: Date of Thrive Assessment Date Thrive assessed 12/29/22 05/23/23 12:10 Const General: No confusion Orientation/consciousness: No confusion HENMT Head: Yes normocephalic and Yes atraumatic Eyes Conjunctivae: conjunctivae normal Chest Chest palpation & inspection: normal inspection of the chest Resp Effort & Inspection: normal respiratory effort Auscultation: clear to auscultation bilaterally, no crackles, no rhonchi and no wheezes Cardio Rate: regular rate Rhythm: regular rhythm Heart sounds: S1 normal heart sound present and S2 normal heart sound present Peripheral pulses: dorsalis pedis present GI Inspection: Yes normal to inspection General: Yes no CVA tenderness Back/Spine/Pelvis Back: no CVA tenderness Neuro General: No confusion Cranial nerves: Yes Normal hearing present Extrem General: No edema Assessment and Plan Assessment & Plan (1) Diarrhea: Code(s): R19.7 - Diarrhea, unspecified Plan: Stool studies and C diff ordered. Given patient reports having a lot of gas will order simethicone. Patient advised to follow BRAT diet (2) Knee osteoarthritis: Code(s): M17.9 - Osteoarthritis of knee, unspecified Qualifiers: Laterality: bilateral Osteoarthritis type: primary Qualified Code(s): M17.0 - Bilateral primary osteoarthritis of knee Plan: Referral placed to orthopedic (3) Fibromyalgia: Code(s): M79.7 - Fibromyalgia Plan: Paroxetine increased to 20 mg daily. Plan Keep scheduled follow-up with PCP in 1 month or follow-up sooner if needed. Orders: Orders Leukocytes Stool Qualitative Today R19.7 - Diarrhea, unspecified CDiff Gene PCR Today R19.7 - Diarrhea, unspecified Comprehensive Met. Panel Today R19.7 - Diarrhea, unspecified Giardia Ag Stool EIA Today R19.7 - Diarrhea, unspecified Ova and Parasite Today R19.7 - Diarrhea, unspecified Referrals Orthopedics Referral M17.9 - Osteoarthritis of knee, unspecified Medications: New paroxetine HCl 20 mg PO DAILY 30 tabs 0RF simethicone (Gas Relief (simethicone)) 125 mg PO BID-QID PRN 90 caps 0RF abdominal distention Refilled diaper,brief,adult,disposable (Briefs, Adult-Extra Large) As directed 14 ea 2RF R32 - Unspecified urinary incontinence Coding Level of Care Code Est Pt Level 4 (65131) Diagnoses Diarrhea R19.7 Primary osteoarthritis of both knees M17.0 Laterality: bilateral Osteoarthritis type: primary Fibromyalgia M79.7
[2023-05-23 12:02] VITALS: BP 118/66; PULSE 74; O2SAT 93
== END 2023-05-23 12:33 | disposition home or self-care (01) ==
PROVIDERS: PCP Physician Assistant; Visit Provider Nurse Practitioner Family
DX: R19.7 Diarrhea, unspecified (principal); M17.0 Bilateral primary osteoarthritis of knee; M79.7 Fibromyalgia
CPT/HCPCS: 99214

== ENCOUNTER 2023-05-23 12:41 | Outpatient (REF) | payer MEDICARE, SELFPAY ==
[2023-05-23 13:42] LABS: Alanine Aminotransferase 17 U/L (0-31); Alkaline Phosphatase 103 U/L (39-117); Anion Gap 11 (12-20); Aspartate Amino Transferase 17 U/L (5-31); Bilirubin Total 0.3 mg/dL (0.0-1.0); Blood Urea Nitrogen 13 mg/dL (9-16); Calcium 9.5 mg/dL (8.4-10.2); Carbon Dioxide 29 mmol/L (22-29); Chloride 107 mmol/L (96-108); Estimated Glomerular Filt Rate > 60; Glucose Random 96 mg/dL (60-115); Potassium 3.6 mmol/L (3.3-5.1); Sodium 143 mmol/L (135-145); Total Protein 6.9 g/dL (6.5-8.0)
[2023-05-23 13:54] LABS: Microalbum/Creatinine Ratio Ur 4.2 ug/mg cr (<30)
[2023-05-23 14:10] LABS: Rheumatoid Factor 1760.6 IU/mL (<15.0)
[2023-05-25 14:42] LABS: Anti DNA DS Antibody <1 IU/mL
[2023-05-26 12:27] LABS: Cyclic Citrullinated Peptide <16 UNITS
== END 2023-05-23 12:42 | disposition home or self-care (01) ==
LOC: HO.10HDL 12:41
PROVIDERS: Nurse Practitioner Family; Visit Provider Physician Assistant
DX: M25.50 Pain in unspecified joint (principal); R19.7 Diarrhea, unspecified; I10 Essential (primary) hypertension
CPT/HCPCS: 36415; 80053; 82043; 82570; 86200; 86225; 86431

== ENCOUNTER 2023-06-06 13:05 | Outpatient (AMB) | payer MEDICARE, SELFPAY ==
[2023-06-06 13:09] VITALS: BMI 35.0
--- NOTE | 2023-06-06 13:09 | MHC.OFFVIS ---
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 Hx of fibromyalgia. States pain has been presents for about 2-3 yrs. Hx of O.A. States her knee gives out when walking, on and off swelling and radiating pain down her legs and back. Also has clicking in knee. Patient explains this could be due to taking Atorvastatin. She explains she has D/C medication and swelling has improvement. No history of knee injection. 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 She complains of pain with daily activity, worse with standing from a seated position, walking, or using stairs. She says her pain has been present for ~2-3 years and is accompanied by intermittent swelling. She says her knee gives way occasionally when she is walking. She reports her swelling improved when she discontinued her atorvastatin and thinks this was causing her swelling. She complains of pain in her elbows, worse with lifting activities. She denies taking any NSAIDs. She follows with Rheumatology for both Fibromyagia & polyarthralgia, and has been seen with complains of bilateral knee & hip pain. She also complains of swelling and pain in her hands & wrists, and is frustrated by this. She is planning on starting water therapy soon. [facility] Medical History Anxiety COVID-19 COVID-19 vaccine series completed Depression with anxiety Elevated cholesterol Hepatitis C HTN (hypertension) IBS (irritable bowel syndrome) Onychomycosis Thyroid nodule Surgical History Ruptured tubal History of removal of cyst Family History Father CHF (congestive heart failure) Diabetes Hypertension Skin cancer Mother Diabetes Hypertension Fibromyalgia Maternal Grandmother TIA (transient ischemic attack) Alzheimers disease Mental health disorder Social History (Updated 06/06/23 @ 13:16 by CHRISTIAN Rivas) Housing: House Alcohol intake: never Patient Tobacco Use Status: Never used Tobacco Tobacco use type: Cigarette e-Cigarette/Vaping Use: Never Used Second Hand Smoke Exposure: No service: No Current occupational status: disabled 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 Sexual orientation: Straight/Heterosexual Gender identity: Female Cognitive needs: No Hearing needs: No Vision needs: No Review of Systems Const All systems reviewed & are unremarkable except as noted in HPI and below Physical Exam Vital Signs: BMI result Body Mass Index 35.0 Const General: no acute distress, alert and awake Orientation/consciousness: patient oriented x3 HEENT Head: Yes normocephalic and Yes atraumatic Eyes EOM: EOMs intact bilaterally Resp Effort & Inspection: normal respiratory effort and able to speak in complete sentences Cardio Jugular venous distension: no JVD Skin General skin exam: turgor normal Rashes: no rashes Neuro General: patient oriented x3 Extrem Other: mild dull ttp knees and elbows ttp left lateral epicondyle Psych Appearance: grossly normal Affect: normal affect Attitude: cooperative Assessment & Plan Assessment & Plan (1) Bilateral primary osteoarthritis of knee: Code(s): M17.0 - Bilateral primary osteoarthritis of knee Plan: This is a 67 year old woman with bilateral PF OA. She has pain with daily activity, worse with standing from a seated position or using stairs. She feels limited in her ADLs and is frustrated by this. She denies any prior treatment. I discussed her diagnosis and treatment options. I recommend NSAIDs and activity modification. I ordered PT for her, she can follow up prn (2) Lateral epicondylitis of elbow: Code(s): M77.10 - Lateral epicondylitis, unspecified elbow Plan: Pain with lifting and grasping activities. I discussed her diagnosis and treatment options.She was fitted for counter-force braces and referred for OT hand therapy. She declined injections at this time. She can follow up prn. (3) Fibromyalgia: Code(s): M79.7 - Fibromyalgia (4) Polyarthralgia: Code(s): M25.50 - Pain in unspecified joint Plan Scribed for Torito Mcdonald MD by Anthony Mendenhall, medical grade shoemaker, on 06/06/23 at 1:30 PM, EST. Orders: Orders PT Evaluation and Treatment 06/06/23 M17.0 - Bilateral primary osteoarthritis of knee Coding Level of Care Code Est Pt Level 4 (02444) Diagnoses Bilateral primary osteoarthritis of knee M17.0 Lateral epicondylitis of elbow M77.10 Fibromyalgia M79.7 Polyarthralgia M25.50
== END 2023-06-06 13:39 | disposition home or self-care (01) ==
PROVIDERS: PCP Physician Assistant; Visit Provider Orthopaedic Surgery
DX: M17.0 Bilateral primary osteoarthritis of knee (principal); M77.10 Lateral epicondylitis, unspecified elbow; M79.7 Fibromyalgia; M25.50 Pain in unspecified joint
CPT/HCPCS: 99203

== ENCOUNTER → 2023-06-06 13:05 | Outpatient (BNVA) | payer MEDICARE, SELFPAY | PROVIDERS: PCP Physician Assistant; Visit Provider Orthopaedic Surgery ==

== ENCOUNTER 2023-06-15 08:57 | Day surgery (SDC) | payer OTHER, SELFPAY ==
[2023-06-15 09:13] VITALS: BP 126/78; PULSE 70; RESP 16; TEMP 35.7; O2SAT 95; BMI 34.4
[2023-06-15] MEDS: Lactated Ringers 1,000 ML 50 ML IVCONT (09:17)
--- NOTE | 2023-06-15 09:48 | HO.ANESPROP2 ---
[facility] Active Problems Active Problems: All Active Problems (Updated 06/06/23 @ 13:29 by Anthony Mendenhall) Smiley's cyst of knee (Acute) Lateral epicondylitis of elbow (Acute) Bilateral primary osteoarthritis of knee (Acute) Diarrhea (Acute) Knee osteoarthritis (Acute) Annual physical exam (Acute) Fibromyalgia (Acute) Hip pain, bilateral (Acute) Menopause (Acute) Polyarthralgia (Acute) Obese (Acute) Recurrent knee instability (Acute) Bilateral knee pain (Acute) Low TSH level (Acute) GABRIEL (generalized anxiety disorder) (Acute) HTN (hypertension) (Acute) HLD (hyperlipidemia) (Acute) Colon cancer screening (Acute) Thyroid nodule (Acute) Well woman exam (Acute) Past Medical History Medical History Anxiety COVID-19 COVID-19 vaccine series completed Depression with anxiety Elevated cholesterol Hepatitis C HTN (hypertension) IBS (irritable bowel syndrome) Onychomycosis Thyroid nodule Family History Family History Father CHF (congestive heart failure) Diabetes Hypertension Skin cancer Mother Diabetes Hypertension Fibromyalgia Maternal Grandmother TIA (transient ischemic attack) Alzheimers disease Mental health disorder Family history of problems with anesthesia: No Surgical History Surgical History Ruptured tubal History of removal of cyst History of Problems with Anesthesia: No Social History Social History (Updated 06/06/23 @ 13:16 by Rekha Mcclure [facility]) Housing: House Alcohol intake: never Patient Tobacco Use Status: Never used Tobacco Tobacco use type: Cigarette e-Cigarette/Vaping Use: Never Used Second Hand Smoke Exposure: No Use of substances other than those prescribed or required for medical reasons: No Advance Directives: No Advance Directives Information Provided: Yes service: No Current occupational status: disabled 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 Sexual orientation: Straight/Heterosexual Gender identity: Female Cognitive needs: No Hearing needs: No Vision needs: No Meds Allergies Allergy/AdvReac Type Severity Reaction Status Date / Time meloxicam Allergy Intermediate swelling Verified 06/06/23 13:15 lisinopril Allergy Unknown tachycardia Verified 06/06/23 13:15 atorvastatin AdvReac Intermediate Swelling Verified 06/06/23 13:15 Active Medications: Current Medications Lactated Ringer's (Lr) 1,000 mls @ 50 mls/hr IVCONT .Q20H PHI Last Admin: 06/15/23 09:17 Dose: 50 mls/hr Exam Exam Date and Time: June 15, 2023 0948 Height,Weight and Vital Signs: Height 5 ft 10 in Weight 108.862 kg Last Vital Signs Temp 96.2 F L 06/15/23 09:13 Pulse 70 06/15/23 09:13 Resp 16 06/15/23 09:13 BP 126/78 06/15/23 09:13 Pulse Ox 95 06/15/23 09:13 O2 Del Method Room Air 06/15/23 09:13 Airway Mallampati Class: III TM Dist: >3cm Neck ROM: Full Loose/Missing/Broken Teeth: Yes, Upper and Lower Assessment and Plan Assessment Anesthesia Assessment: Anesthesia Plan Discussed and Chart Reviewed Final Anesthetic Review Family History of Problems with Anesthesia: No History of Problems with Anesthesia: No NPO: Yes ASA Class: II and III Final Preanesthetic Review: No Changes in Pt Med Stat, Meds/Allgs Chart Reviewed, Consent Obtained/Reviewed and Anes Risks/Benef Reviewed Patient Risk: Low Procedure Risk: Low Anesthetic Plan Anesthetic Plan: GA Disposition: Standard PACU
--- NOTE | 2023-06-15 09:59 | MHC.SHP ---
Pre-Procedural Eval Section A Date of Service: 06/15/23 Section B Chief Complaint: Screening Relevant Family History (Specify if Yes): No Relevant Social History: None Present Medications: see Short Stay Collaborative assessment Medical History: Significant History (Anxiety COVID-19 COVID-19 vaccine series completed Depression with anxiety Elevated cholesterol Hepatitis C HTN (hypertension) IBS (irritable bowel syndrome) Onychomycosis Thyroid nodule) History of Previous Operations: Relevant previous surgery/procedure and date(s) Allergies: Allergies Allergy/AdvReac Type Severity Reaction Status Date / Time meloxicam Allergy Intermediate swelling Verified 06/06/23 13:15 lisinopril Allergy Unknown tachycardia Verified 06/06/23 13:15 atorvastatin AdvReac Intermediate Swelling Verified 06/06/23 13:15 Review of Systems Sugical H&P ROS: Negative: Constitution, Cardiovascular, Respiratory, Neurological, Psychiatric, Hem-Onc, Allergic/Immunologic, Gastrointestinal, Genitourinary, Musculoskeletal, Integumentary, Endocrine and Eyes/Ears/Nose/Throat Exam Surgical H&P Exam: Normal: HEENT, Normal: Heart, Normal: Lungs, Normal: Extremities, Normal: Abdomen, Normal: Skin and Normal: Neurological Plan Diagnosis/Plan: Unchanged I have reviewed the history and physical and performed a pertinent physical examination on my patient. No changes have occurred unless specified. Time Spent With Patient Time: Total time managing care of this patient today ____ minutes.
--- NOTE | 2023-06-15 10:43 | P.OP_ITS ---
Operative Note Operative Note Date of Service: 06/15/23 Narrative: Operative Information Procedure Description: Colonoscopy Indication: screening Anesthesia: MAC COLONOSCOPY Instrument: Olympus variable stiffness pediatric scope 190L Colonoscopy Monitoring: Vital signs and clinical assessment, continuous EKG monitoring, Pulse oximetry, Carbon Dioxide monitoring and blood pressure monitoring were done throughout the procedure. Colon withdrawal time was 10 minutes. Procedure: The patient was placed in the left lateral decubitis position and pre-procedure medications were administered. After a digital rectal examination of the ano-rectum, the video colonoscope was inserted into the rectum and advanced through the colon to the cecum/TI. The colonoscope was slowly withdrawn in a retrograde panoramic fashion and the colon mucosa was carefully examined including a retroflexed view of the rectum. Findings and interventions are described below. Procedure Difficulty: easy Findings: Terminal Ileum-normal Cecum:normal Ascending Colon: normal Transverse Colon -normal Descending Colon: 8-10 mm sessile polyp removed with cold snare Sigmoid Colon: normal Rectum: Retroflexion with small internal hemorrhoids, grade I, x 2 sessile polyps 6-8 mm removed with cold snare Anorectum - normal Colon preparation: [place] Bowel Preparation Scale Right colon; 2 Transverse colon: 3 Left colon; 3 (0 = Unprepared colon segment with mucosa not seen due to solid stool that cannot be cleared. 1 = Portion of mucosa of the colon segment seen, but other areas of the colon segment not well seen due to staining, residual stool and/or opaque liquid. 2 = Minor amount of residual staining, small fragments of stool and/or opaque liquid, but mucosa of colon segment seen well. 3 = Entire mucosa of colon segment seen well with no residual staining, small fragments of stool or opaque liquid) Impression and Post Procedure Diagnosis: polyps internal hemorrhoids Plan: High fiber diet leaflet Avoid straining at stool, epsom salts and sitz bath, anusol supps or cream Repeat Colonoscopy in 5-7 years due to adenomatous appearing polyp or earlier if clinically indicated Above findings were reviewed with the patient and relevant handouts were provided if indicated.
[2023-06-15 10:48] VITALS: BP 99/63; PULSE 66; RESP 16; TEMP 36.1; O2SAT 95
[2023-06-15 11:03] VITALS: BP 106/58; PULSE 67; RESP 14; TEMP 36.2; O2SAT 97
== END 2023-06-15 11:41 | disposition home or self-care (01) ==
PROVIDERS: PCP Physician Assistant; Visit Provider Internal Medicine Gastroenterology
PROC: 0DJD8ZZ Inspection of Lower Intestinal Tract, Via Natural or Artificial Opening Endoscopic (ICD-10-PCS; CPT 45378; principal; 2023-06-15 11:20)
DX: Z12.11 Encounter for screening for malignant neoplasm of colon (principal); D12.4 Benign neoplasm of descending colon; K62.1 Rectal polyp; K64.8 Other hemorrhoids; K58.0 Irritable bowel syndrome with diarrhea; I10 Essential (primary) hypertension; E78.5 Hyperlipidemia, unspecified; M79.7 Fibromyalgia
CPT/HCPCS: 45385; 88305

== ENCOUNTER → 2023-06-15 08:57 | Outpatient (BNV) | payer OTHER, SELFPAY | PROVIDERS: PCP Physician Assistant; Visit Provider Internal Medicine Gastroenterology | DX: Z12.11 Encounter for screening for malignant neoplasm of colon (principal); D12.4 Benign neoplasm of descending colon; K62.1 Rectal polyp; K64.0 First degree hemorrhoids | CPT/HCPCS: 45385 ==

== ENCOUNTER 2023-06-29 10:02 | Outpatient (AMB) | payer OTHER, SELFPAY ==
--- NOTE | 2023-06-29 10:23 | A.OFFVIS_ITS ---
Intake Vital Signs 06/29/23 10:25 Height 5 ft 10 in Weight 247 lb 5.738 oz BMI 35.5 BP 117/71 Blood Pressure Location Lt brachial Position Sitting Pulse 69 Intake Visit Reasons: S/P [place]; Dr. Mandel Intake Note: Patient presents to in office visit today in follow up of colonoscopy. Patient underwent colonoscopy on 06/15/23. CC: Patient reports doing well today and deneis having any GI symptoms today. Information Services Manager Required: No Allergies meloxicam Allergy (Intermediate, Verified 06/29/23 10:31) swelling lisinopril Allergy (Unknown, Verified 06/29/23 10:31) tachycardia atorvastatin Adverse Reaction (Intermediate, Verified 06/29/23 10:31) Swelling HPI S/P [place]; Dr. Mandel HPI Details LAST VISIT Colon cancer screening Patient denies any cardiac or respiratory symptoms.? Occasional sx of loose stools with certain food. Hx of IBS. Denies any issues with anesthesia in the past.? Colonoscopy over 10 years ago at [facility], no polyps. Denies any history of sleep apnea.? History of hepatitis-C in 2000 treated for 2 years. Not on any anticoagulation therapy.? No family or personal history of colon cancer or polyps.? Patient denies melena, hematochezia, unintentional weight loss or ribbon like stools.? Discussed at length the pre-procedure,? prep, diet & medications as well as what to expect prior, during and after the procedure.?? Stressed the importance of good bowel prep. ?Recommended the use of Vaseline or Calmoseptine OTC & baby wipes with bowel movements to promote comfort.? ?Patient verbalizes understanding and agrees to plan of care.? She was given the opportunity to ask questions and all questions answered.? We will see her after the procedure.? ? ? IBS (irritable bowel syndrome) History of IBS occasional diarrhea with certain food. Discussed dietary triggers and avoiding them. FODMAP diet discussed with patient and list of food recommended and food to avoid given to her. Patient reports that her symptoms are controlled usually with diet on her own. COLONOSCOPY Findings: Terminal Ileum-normal Cecum:normal Ascending Colon: normal Transverse Colon -normal Descending Colon: 8-10 mm sessile polyp removed with cold snare Sigmoid Colon: normal Rectum: Retroflexion with small internal hemorrhoids, grade I, x 2 sessile polyps 6-8 mm removed with cold snare Anorectum - normal Colon preparation: [place] Bowel Preparation Scale Right colon; 2 Transverse colon: 3 Left colon; 3 (0 = Unprepared colon segment with mucos a not seen due to solid stool that cannot be cleared. 1 = Portion of mucosa of the colon segme nt seen, but other areas of the colon segment not well seen due to staining, residual stool and/or opaque liquid. 2 = Minor amount of residual staining, s mall fragments of stool and/or opaque liquid, but mucosa of colon segment seen well. 3 = Entire mucosa of colon segment seen well with no residual staining, small fragments of stool or opaque liquid) Impression and Post Procedure Diagnosis: polyps internal hemorrhoids Plan: High fiber diet leaflet Avoid straining at stool, epsom salts and sitz bath, anusol supps or cream Repeat Colonoscopy in 5-7 years due to adenomatous appearing polyp or earlier if clinically indicated PATHOLOGY RESULTS Diagnosis A. Colon, descending, polypectomy: Tubular adenoma; negative for high-grade dysplasia or carcinoma. B. Rectum, polypectomies (2): Hyperplastic mucosal polyps TODAY'S VISIT Patient is here today for follow-up and to discuss colonoscopy results. Patient denies any ill effects from the prep, anesthesia or procedure itself. Patient reports that she has been feeling well. Denies any melena, hematochezia, unintentional errors of in a to. Colonoscopy results discussed with patient. One tubular adenoma found in the descending colon. Rectum had 2 hyperplastic polyps. Patient reports occasional postprandial abdominal bloating, however depending on what she eats. Patient reports that she is moving her bowels well without any issues. Patient uses simethicone with relief. Patient would like to get her a referral to bariatric surgery. [facility] Medical History (Updated 06/29/23 @ 10:44 by Bhavani Tinsley [employer]-) Tubular adenoma COVID-19 COVID-19 vaccine series completed Thyroid nodule Elevated cholesterol HTN (hypertension) Anxiety Hepatitis C IBS (irritable bowel syndrome) Depression with anxiety Onychomycosis Surgical History Ruptured tubal History of removal of cyst Family History Father CHF (congestive heart failure) Diabetes Hypertension Skin cancer Mother Diabetes Hypertension Fibromyalgia Maternal Grandmother TIA (transient ischemic attack) Alzheimers disease Mental health disorder Social History Housing: House Alcohol intake: never Patient Tobacco Use Status: Never used Tobacco Tobacco use type: Cigarette e-Cigarette/Vaping Use: Never Used Second Hand Smoke Exposure: No service: No Current occupational status: disabled 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/ [employer] Sexual orientation: Straight/Heterosexual Gender identity: Female Cognitive needs: No Hearing needs: No Vision needs: No Review of Systems Const Denies weight gain and Denies weight loss ENT Reports no additional complaints, Denies dysphagia and Denies odynophagia Card Reports no additional complaints Resp Reports no additional complaints GI Denies abdominal pain, Denies belching, Denies melena, Denies bloating, Denies change in bowel habits, Denies dysphagia, Denies excessive flatus, Denies dyspepsia, Denies heartburn, Denies diarrhea, Denies loose stools, Denies nausea, Denies odynophagia and Denies vomiting Reports no additional complaints Musc Reports no additional complaints Neuro Reports no additional complaints Psych Reports no additional complaints Endo Reports no additional complaints Physical Exam Vital Signs: Last Vital Signs Pulse 69 06/29/23 10:25 BP 117/71 06/29/23 10:25 BMI result Body Mass Index 35.5 Const General: healthy appearing, no acute distress and well developed Nutritional Appearance: obese Orientation/consciousness: patient oriented x3 HEENT Head: Yes normal to inspection, Yes normocephalic and Yes atraumatic Face and sinus: Yes normal facial exam Mouth: Normal oral and palatal mucosa present Throat: Yes posterior oropharynx normal, Yes tonsils normal and Yes uvula midline Eyes General: appearance normal, both eyes and all related structures Neck Neck: Yes normal visual inspection, Yes full ROM and Yes trachea midline Thyroid: Thyroid normal Resp Effort & Inspection: normal respiratory effort, able to speak in complete sentences, no tracheal deviation and symmetric chest movement Auscultation: clear to auscultation bilaterally Cardio Rate: regular rate Heart sounds: S1 normal heart sound present and S2 normal heart sound present GI Inspection: Yes normal to inspection, No distended and Yes obesity Palpation (GI): Soft to palpation, not firm, nontender and No hepatosplenomegaly present Auscultation: normal bowel sounds General: Yes no CVA tenderness Back/Spine/Pelvis Back: no CVA tenderness Skin General skin exam: elasticity normal, turgor normal and dry skin Neuro General: patient oriented x3 Psych Appearance: grossly normal Mental Status: mental status grossly normal Assessment & Plan Assessment & Plan (1) Tubular adenoma: Code(s): D36.9 - Benign neoplasm, unspecified site (2) Status post colonoscopy: Code(s): Z98.890 - Other specified postprocedural states (3) IBS (irritable bowel syndrome): Code(s): K58.9 - Irritable bowel syndrome without diarrhea Qualifiers: Irritable bowel syndrome type: with both diarrhea and constipation Qualified Code(s): K58.2 - Mixed irritable bowel syndrome (4) Obese: Code(s): E66.9 - Obesity, unspecified Qualifiers: Body mass index: BMI 34.0-34.9 Obesity classification: adult class 1 (BMI 30 - 34.9) Obesity type: due to excess calories Serious obesity comorbidity presence: without serious comorbidity Qualified Code(s): E66.09 - Other obesity due to excess calories; Z68.34 - Body mass index [BMI] 34.0-34.9, adult Plan Tubular adenoma without high-grade dysplasia or carcinoma found. Colorectal screening recommended in 5 years, and in clinically necessary. Patient will continue avoiding dietary triggers. Low FODMAP diet discussed with patient. Continue taking simethicone for postprandial abdominal bloating. Diet recommendations made. List of food recommended as well as list of food to avoid given to patient. Patient will be referred to bariatric surgery. She wishes to have consultation with them. I will see patient in 6 months, sooner on as needed basis. Patient is agreeable to this plan and verbalizes understanding of instructions. She was given the opportunity to ask questions and all questions answered. Thank you for allowing me to participate in her care Orders: Referrals Bariatric Surgery Referral E66.9 - Obesity, unspecified Coding Level of Care Code Est Pt Level 3 (74057) Diagnoses Tubular adenoma D36.9 Status post colonoscopy Z98.890 Irritable bowel syndrome with both constipation and diarrhea K58.2 Irritable bowel syndrome type: with both diarrhea and constipation Class 1 obesity due to excess calories without serious comorbidity with body mass index (BMI) of 34.0 to 34.9 in adult E66.09; Z68.34 Body mass index: BMI 34.0-34.9 Obesity classification: adult class 1 (BMI 30 - 34.9) Obesity type: due to excess calories Serious obesity comorbidity presence: without serious comorbidity Time Spent (min) 30 Comment 20 minutes spent with patient and additional 10 minutes spent reviewing her records
[2023-06-29 10:25] VITALS: BP 117/71; PULSE 69; BMI 35.5
== END 2023-06-29 10:52 | disposition home or self-care (01) ==
PROVIDERS: PCP Physician Assistant; Visit Provider Nurse Practitioner Family
DX: D36.9 Benign neoplasm, unspecified site (principal); Z98.890 Other specified postprocedural states; K58.2 Mixed irritable bowel syndrome; E66.09 Other obesity due to excess calories; Z68.34 Body mass index [BMI] 34.0-34.9, adult
CPT/HCPCS: 99213

== ENCOUNTER → 2023-06-29 10:02 | Outpatient (BNVA) | payer OTHER, SELFPAY | PROVIDERS: PCP Physician Assistant; Visit Provider Nurse Practitioner Family | DX: K58.2 Mixed irritable bowel syndrome (principal); D36.9 Benign neoplasm, unspecified site; Z98.890 Other specified postprocedural states; E66.09 Other obesity due to excess calories; Z68.35 Body mass index [BMI] 35.0-35.9, adult | CPT/HCPCS: 99212 ==

== ENCOUNTER 2023-12-30 13:46 | Outpatient (AMB) | payer MEDICARE, SELFPAY ==
--- NOTE | 2023-12-30 13:46 | MHC.OFFVIS ---
Vital Signs 12/30/23 13:51 Height 5 ft 10 in Weight 253 lb BMI 36.3 BP 138/69 Blood Pressure Location Lt brachial Position Sitting Pulse 70 Intake Visit Reasons: 6 month follow up IBS Intake Note: Patient is seen in office for 6 month follow up vsiit, following IBS. 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 Colorectal screening recommended in 5 years, and in clinically necessary. Patient will continue avoiding dietary triggers. Low FODMAP diet discussed with patient. Continue taking simethicone for postprandial abdominal bloating. Diet recommendations made. List of food recommended as well as list of food to avoid given to patient. Patient will be referred to bariatric surgery. She wishes to have consultation with them. I will see patient in 6 months, sooner on as needed basis. Patient is agreeable to this plan and verbalizes understanding of instructions. She was given the opportunity to ask questions and all questions answered. ? Thank you for allowing me to participate in her care Orders Referrals Bariatric Surgery Referral E66.9 TODAY'S VISIT Patient is here today for follow-up. Patient reports that since last time I have seen her she has been doing better. Patient figured out why she was having so much diarrhea. Patient reports that she was eating grapes that were on washed and most likely her diarrhea was because of the pesticides that were used. Patient reports that currently she will occasionally have postprandial loose stool depending on what she eats. Patient tried fiber in the past, however reports that it was too bulky and then she was unable to have a bowel movement. Patient denies melena, hematochezia, unintentional weight loss or ribbon like stools. Reports occasional dyspepsia without dysphagia or odynophagia. However patient reports that depending on what she eats. Patient is trying to avoid certain food. Patient knows that when she has milk she will have loose stools and sometimes with other food. Would like to get allergen testing today [facility] Medical History (Updated 12/30/23 @ 19:08 by Bhavani Tinsley, [facility]) Colon cancer screening Tubular adenoma COVID-19 COVID-19 vaccine series completed Thyroid nodule Elevated cholesterol HTN (hypertension) Anxiety Hepatitis C IBS (irritable bowel syndrome) Depression with anxiety Onychomycosis Surgical History Ruptured tubal History of removal of cyst Family History Father CHF (congestive heart failure) Diabetes Hypertension Skin cancer Mother Diabetes Hypertension Fibromyalgia Maternal Grandmother TIA (transient ischemic attack) Alzheimers disease Mental health disorder Social History Housing: House Alcohol intake: never Patient Tobacco Use Status: Never used Tobacco Tobacco use type: Cigarette e-Cigarette/Vaping Use: Never Used Second Hand Smoke Exposure: No service: No Current occupational status: disabled 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 Sexual orientation: Straight/Heterosexual Gender identity: Female Cognitive needs: No Hearing needs: No Vision needs: No Review of Systems Const Denies weight gain and Denies weight loss ENT Reports no additional complaints, Denies dysphagia and Denies odynophagia Card Reports no additional complaints Resp Reports no additional complaints GI Denies abdominal pain, Denies belching, Denies melena, Reports bloating, Denies change in bowel habits, Reports constipation, Denies dysphagia, Denies excessive flatus, Denies dyspepsia, Denies heartburn, Denies diarrhea, Reports loose stools, Denies nausea, Denies odynophagia and Denies vomiting Reports no additional complaints Musc Reports no additional complaints Neuro Reports no additional complaints Psych Reports no additional complaints Endo Reports no additional complaints Physical Exam Vital Signs: Last Vital Signs Pulse 70 12/30/23 13:51 BP 138/69 12/30/23 13:51 BMI result Body Mass Index 36.3 Const General: healthy appearing, no acute distress and well developed Nutritional Appearance: obese Orientation/consciousness: patient oriented x3 Resp Effort & Inspection: normal respiratory effort, able to speak in complete sentences, no tracheal deviation and symmetric chest movement Auscultation: clear to auscultation bilaterally Cardio Rate: regular rate GI Inspection: Yes normal to inspection, No distended and Yes obesity Palpation (GI): Soft to palpation, not firm, nontender and No hepatosplenomegaly present Auscultation: normal bowel sounds General: Yes no CVA tenderness Back/Spine/Pelvis Back: no CVA tenderness Skin General skin exam: elasticity normal, turgor normal and dry skin Neuro General: patient oriented x3 Psych Appearance: grossly normal Mental Status: mental status grossly normal Assessment & Plan Assessment & Plan (1) Tubular adenoma: Code(s): D36.9 - Benign neoplasm, unspecified site Category: Medical (2) Obese: Code(s): E66.9 - Obesity, unspecified Category: Medical Qualifiers: Obesity type: due to excess calories Obesity classification: adult class 1 (BMI 30 - 34.9) Serious obesity comorbidity presence: without serious comorbidity Body mass index: BMI 34.0-34.9 Qualified Code(s): E66.09 - Other obesity due to excess calories; Z68.34 - Body mass index [BMI] 34.0-34.9, adult (3) IBS (irritable bowel syndrome): Code(s): K58.9 - Irritable bowel syndrome without diarrhea Qualifiers: Irritable bowel syndrome type: with both diarrhea and constipation Qualified Code(s): K58.2 - Mixed irritable bowel syndrome (4) Postprandial diarrhea: Code(s): K52.9 - Noninfective gastroenteritis and colitis, unspecified Plan Patient reports that certain food cause her abdominal bloating is requesting allergen testing. Patient will start taking Citrucel to help her bulk stools. Discussed with her low FODMAP diet. List of food recommended as well as list of food to avoid given to patient. Patient was also encouraged to increase fluid intake and activity to promote better bowel motility. Patient will return in 6 months, sooner on as needed basis. She is agreeable to this plan and verbalizes understanding of instructions. She was given the opportunity to ask questions and all questions answered. Thank you for allowing me to participate in her care Orders: Orders Rast Allergen Today K21.9 - Gastro-esophageal reflux disease without esophagitis Medications: New methylcellulose (laxative) (Citrucel) 500 mg PO DAILY 30 tabs 2RF K59.00 - Constipation, unspecified Discontinued bisacodyl (Dulcolax (bisacodyl)) take 2 tabs at noon the day before your colonoscopy Discontinued Reason: Patient Completed Course 10 mg (2 x 5 mg) PO ONCE 1 day 2 tabs 0RF Z12.11 - Encounter for screening for malignant neoplasm of colon polyethylene glycol 3350 (Miralax) As directed by gastroenterology department at [facility] Discontinued Reason: Patient Completed Course 238 grams PO ONCE 238 grams 0RF Z12.11 - Encounter for screening for malignant neoplasm of colon
[2023-12-30 13:51] VITALS: BP 138/69; PULSE 70; BMI 36.3
== END 2023-12-30 14:28 | disposition home or self-care (01) ==
PROVIDERS: PCP Physician Assistant; Visit Provider Nurse Practitioner Family
DX: K58.2 Mixed irritable bowel syndrome (principal); Z86.010 Personal history of colon polyps; E66.09 Other obesity due to excess calories; Z68.34 Body mass index [BMI] 34.0-34.9, adult
CPT/HCPCS: 99213

== ENCOUNTER 2023-12-30 13:46 | Outpatient (REF) | payer MEDICARE, SELFPAY | END 2023-12-30 13:47 | disposition home or self-care (01) | LOC: HO.LAB 13:46 | PROVIDERS: PCP Physician Assistant; Visit Provider Nurse Practitioner Family | DX: K21.9 Gastro-esophageal reflux disease without esophagitis (principal); Z91.09 Other allergy status, other than to drugs and biological substances | CPT/HCPCS: 36415; 86003; 99212 ==

== ENCOUNTER 2024-01-31 13:54 | Outpatient (AMB) | payer MEDICARE, SELFPAY ==
[2024-01-31 14:04] VITALS: BP 120/82; PULSE 64; O2SAT 95
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
== END 2024-01-31 14:58 | disposition home or self-care (01) ==
PROVIDERS: PCP Physician Assistant; Visit Provider Physician Assistant
DX: R79.89 Other specified abnormal findings of blood chemistry (principal)
CPT/HCPCS: 83036; 99214

== ENCOUNTER 2025-02-07 09:50 | Outpatient (AMB) | payer MEDICARE, SELFPAY ==
[2025-02-07 10:02] VITALS: BP 172/100; PULSE 70; TEMP 36.2; O2SAT 96; BMI 34.7
--- NOTE | 2025-02-07 10:02 | A.OFFPC_ITS ---
Vital Signs 02/07/25 10:02 02/07/25 10:43 Height 5 ft 10 in Weight 242 lb BMI 34.7 BP 172/100 H 138/100 H Blood Pressure Location Lt brachial Position Sitting Pulse 70 Pulse Source Pulse Oximeter Temp 97.1 F Temp Source Temporal Artery Scan Pulse Oximetry (%) 96 Oxygen Delivery Method Room Air Intake Visit Reasons: Med f/u Solution Make Up Operator Required: No Accompanied by: Self / Same As Patient Allergies meloxicam Allergy (Intermediate, Verified 02/07/25 10:11) swelling lisinopril Allergy (Unknown, Verified 02/07/25 10:11) tachycardia amlodipine Adverse Reaction (Intermediate, Verified 02/07/25 10:16) pedal edema atorvastatin Adverse Reaction (Intermediate, Verified 02/07/25 10:11) Swelling Medication List - Last Reconciled 02/07/25 by Aron Lambert PA-C aspirin 81 mg PO DAILY diaper,brief,adult,disposable (Briefs, Adult-Extra Large) As directed fluticasone propionate 50 mcg/actuation (Flonase Allergy Relief) 1 spray intranasal DAILY PRN 30 days gabapentin 300 mg PO TID 14 days methylcellulose (laxative) (Citrucel) 500 mg PO DAILY metoprolol succinate ER 25 mg PO DAILY paroxetine HCl 20 mg PO DAILY 90 days Tobacco use date assessed: 02/07/25 Fall risk assessment: No Falls in past year Last assessed Fall Risk: 02/07/25 Dental Screening Dental Screen Date: 02/07/25 Did you have a dental visit in the last 12 months?: Yes Did you have a dental problem in the last 6 months where you did not have access to dental care?: No Was dental information given to patient?: Patient has dentist HPI Med f/u HPI Details Patient is a 69-year-old female here today for a follow-up visit . Patient has a past medical history sig nificant for essential hypertension, obesity, Thyroid nodule. CHRONIC MEDICAL CONDITIONS---> ? .. ? HTN: Denies any headaches, chest pain, shortness of breath. ? .. ? Anxiety: Report paxil 10mg is working great for her mood swings and agitation. . Obesity:? Has noted some weight loss since last office visit.? She does report she has been trying to work on diet to reduce her weight. ? .. ? Thyroid nodules:? Patient has lost follow-up with endocrinology. .? Most recent TSH at 0.22 [facility] Medical History (Updated 02/07/25 @ 10:29 by Aron Lambert PA-C) Colon cancer screening Tubular adenoma COVID-19 COVID-19 vaccine series completed Thyroid nodule Elevated cholesterol HTN (hypertension) Anxiety Hepatitis C IBS (irritable bowel syndrome) Depression with anxiety Onychomycosis Surgical History Ruptured tubal History of removal of cyst Family History Father CHF (congestive heart failure) Diabetes Hypertension Skin cancer Mother Diabetes Hypertension Fibromyalgia Maternal Grandmother TIA (transient ischemic attack) Alzheimers disease Mental health disorder Social History Housing: House Alcohol intake: never Patient Tobacco Use Status: Never used Tobacco Tobacco use type: Cigarette e-Cigarette/Vaping Use: Never Used Second Hand Smoke Exposure: No service: No Current occupational status: disabled 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 1. Little interest or pleasure in doing things: not at all 2. Feeling down, depressed, or hopeless: several days 3. Trouble falling or staying asleep, or sleeping too much: nearly every day 4. Feeling tired or having little energy: more than half the days 5. Poor appetite or overeating: several days 6. Feeling bad about yourself - or that you are a failure or have let yourself or your family down: not at all 7. Trouble concentrating on things, such as reading the newspaper or watching television: more than half the days 8. Moving or speaking so slowly that other people could have noticed. Or the opposite - being so fidgety or restless that you have been moving around a lot more than usual: not at all 9. Thoughts that you would be better off or of hurting yourself in some way: not at all Total score: 9 63629 - PHQ-9 Billing: Yes Source: Developed by Drs. Will Mckeon, Delia Loving, Guilherme Mchugh and colleagues, with an educational irvin from [employer]. Thrive Questionnaire Date Thrive assessed: 02/07/25 I am a: Patient What is your living situation today?: I have a steady place to live Within the past 12 months, did the food you bought not last and you didn't have the money to get more?: Sometimes True Within the past 12 months, did you worry whether your food would run out before you got money to buy more?: Sometimes True Do you have trouble paying for medicines?: No Do you have trouble getting transportation to medical appointments?: No Do you have trouble paying your heating and electricity bill?: Yes Do you have trouble taking care of your child, family member or friend?: Yes Do you have trouble with day-to-day activities such as bathing, preparing meals, shopping, managing finances, etc.?: Yes Are you currently unemployed and looking for a job?: Yes Are you interested in more education?: Yes Please select the resources that you would like help with: Food, Paying for medicine, Utilities, Care for elder or disabled and Daily support Currently or been in a relationship where the following occur: No concerns reported THRIVE Score: 3 AUDIT C Alcohol Use Questionnaire (AUDIT-C) 1. How often do you have a drink containing alcohol?: Never 3. How often do you have six or more drinks on one occasion?: Never Total Score: 0 GABRIEL-7 AMB Questionnaire GABRIEL-7 Date GABRIEL - 7 assessed: 02/07/25 Feeling nervous, anxious, or on edge: 2 = More than half the days Not being able to stop or control worryin = Several days Worrying too much about different things: 1 = Several days Trouble relaxin = Several days Being so restless that it is hard to sit still: 0 = Not at all Becoming easily annoyed or irritable: 3 = Nearly every day Feeling afraid as if something awful might happen: 0 = Not at all Total GABRIEL-7 score (0-4 normal; 5-9 mild; 10-14 moderate; 15-21 severe): 8 Source: Developed by Delia Bob Kurt Kroenke and colleagues, with an educational irvin from [employer]. GABRIEL-7 Assessment Billing GABRIEL-7 Assessment Tool: GABRIEL-7 Assessment 64826 Physical exam (Primary Care) Vital Signs: Last Vital Signs Temp 97.1 F 02/07/25 10:02 Pulse 70 02/07/25 10:02 BP 172/100 H 02/07/25 10:02 Pulse Ox 96 02/07/25 10:02 Oxygen Delivery Method Room Air 02/07/25 10:02 BMI result Body Mass Index 34.7 Tobacco/Smoking Status: Tobacco use Status Tobacco use date assessed 02/07/25 02/07/25 10:04 Patient Tobacco Use Status Never used Tobacco 02/07/25 10:04 Tobacco use type Cigarette 02/07/25 10:04 e-Cigarette/Vaping Use Never Used 02/07/25 10:04 PHQ-9: PHQ-9 Score PHQ-9: Total score 9 02/07/25 10:17 Thrive Assessment: Date of Thrive Assessment Date Thrive assessed 02/07/25 02/07/25 10:04 Currently or been in a relationship where the following occur: No concerns reported Results AMB Hemoglobin A1c AMB Hemoglobin A1c 5.8 % Last Edit by CHRISTIAN Sawyer on 02/07/25 10:18 Coding Diagnoses Urinary frequency R35.0 Spastic bladder N32.89 GABRIEL (generalized anxiety disorder) F41.1 Essential hypertension I10 Hypertension type: essential hypertension Mixed hyperlipidemia E78.2 Hyperlipidemia type: mixed hyperlipidemia Constipation, unspecified constipation type K59.00 Constipation type: unspecified constipation type Additional Codes GABRIEL-7 Assessment Billing - GABRIEL-7 Assessment Tool: GABRIEL-7 Assessment 52931 ([id number]) PHQ-9 - 66868 - PHQ-9 Billing: Yes ([id number]) Assessment & Plan Assessment & Plan (1) Urinary frequency: Code(s): R35.0 - Frequency of micturition Category: Medical (2) Spastic bladder: Code(s): N32.89 - Other specified disorders of bladder Category: Medical (3) GABRIEL (generalized anxiety disorder): Code(s): F41.1 - Generalized anxiety disorder Category: Medical (4) HTN (hypertension): Code(s): I10 - Essential (primary) hypertension Category: Medical Qualifiers: Hypertension type: essential hypertension Qualified Code(s): I10 - Essential (primary) hypertension Plan: Patient reports blood pressure is 130/70. Continue current blood pressure medications. Goal blood pressures to be below 140/90 (5) HLD (hyperlipidemia): Code(s): E78.5 - Hyperlipidemia, unspecified Category: Medical Qualifiers: Hyperlipidemia type: mixed hyperlipidemia Qualified Code(s): E78.2 - Mixed hyperlipidemia (6) Constipation: Code(s): K59.00 - Constipation, unspecified Category: Medical Qualifiers: Constipation type: unspecified constipation type Qualified Code(s): K59.00 - Constipation, unspecified Orders: Orders AMB Hemoglobin A1c Today R73.09 - Other abnormal glucose Microalbumin, Random (w Creat) Today I10 - Essential (primary) hypertension TSH reflex Free T4 Today R79.89 - Other specified abnormal findings of blood chemistry Comprehensive [place]. Panel Fast Today I10 - Essential (primary) hypertension Complete Blood Count no Diff Today I10 - Essential (primary) hypertension Referrals Urology Referral N32.89 - Other specified disorders of bladder Medications: New sennosides (senna) 17.2 mg (2 x 8.6 mg) PO BEDTIME 30 days 60 caps 2RF K59.00 - Constipation, unspecified hydrochlorothiazide 12.5 mg PO DAILY 90 days 90 tabs 1RF I10 - Essential (primary) hypertension Refilled diaper,brief,adult,disposable (Briefs, Adult-Extra Large) As directed 200 ea 2RF R32 - Unspecified urinary incontinence
--- OUTSIDE RECORDS SUMMARY | 2025-02-07 10:12 | XMS_ITS | Clinical Summary ---
Author Organization [facility] Address [address] [place] [address] Care Team Providers Care Director Of Corporate Marketing Name Role Phone Aron Lambert Primary Care Provider Surgical History Surgery Date Site/Laterality Comments OTHER SURGICAL HISTORY PROCEDURE: ---- OTHER ----; COMMENT: ruptured tubal OTHER SURGICAL HISTORY PROCEDURE: ---- OTHER ----; COMMENT: cyst removal Medical History Medical History Date Comments Anxiety disorder DX:Anxiety diso rder Right foot pain DX:Right foot pa in Hypertension DX:Hypertension High cholesterol DX:High cholest sonu Onychomycosis DX:Onychomycosis Tinea unguium DX:Tinea unguium Family History Medical History Relation Name Comments Diabetes Father Hypertension Father Other: congestive heart failure Father Other: skin cancer Father Diabetes Mother Hypertension Mother Alzheimer's disease Other Other: fibromyalgia Other Relation Name Status Comments Father Mother Other Social History Tobacco Use Types Packs/Day Years Used Date Smoking Tobacco: Never Smokeless Tobacco: Never Alcohol Use Standard Drinks/Week Comments Not Currently 0 (1 standard drink = 0.6 oz pur e alcohol) Comments Unknown Sex and Gender Information Value Date Recorded Sex Assigned at Not on file Legal Sex Female 6:40 AM EST Gender Identity Not on file Sexual Orientation Not on file Obstetrics History Plan of Treatment Health Maintenance Due Date Last Done Comments Breast Cancer Screening 1955 DTaP,Tdap,and Td Vaccines (1 - Tdap) 1976 Pneumococcal Vaccine: 50+ Ye ars (1 of 1 - PCV) 2007 Zoster Vaccines (1 of 2) 2007 COVID-19 Vaccine ( - 2023-2 5 season) 2024 Influenza Vaccine (Season Ended) 2025 RSV Immunization Adult Patie nts (1 - 1-dose 75+ series) 2032 HIB Vaccines Aged Out No longer eligi ble based on patient's age to complete this topic HPV Vaccines Aged Out No longer eligi ble based on patient's age to complete this topic Hepatitis A Vaccines Aged Out No long er eligible based on patient's age to complete this topic Hepatitis B Vaccines Aged Out No long er eligible based on patient's age to complete this topic IPV Vaccines Aged Out No longer eligi ble based on patient's age to complete this topic MMR Vaccines Aged Out No longer eligi ble based on patient's age to complete this topic Meningococcal ACWY Vaccine Aged Out N o longer eligible based on patient's age to complete this topic Meningococcal B Vaccine Aged Out No l onger eligible based on patient's age to complete this topic RSV Immunization Patients Un adrianne 20 months Aged Out No longer eligible b ased on patient's age to complete this topic Varicella Vaccines Aged Out No longer eligible based on patient's age to complete this topic Care Teams Director Of Corporate Marketing Relationship Specialty Start Date End Date Aorn Lambert PA PCP - General Internal Medicine 09/09/20
[2025-02-07 10:43] VITALS: BP 138/100
== END 2025-02-07 10:53 | disposition home or self-care (01) ==
LOC: HO.HMCH 09:51
PROVIDERS: PCP Physician Assistant; Visit Provider Physician Assistant
DX: R73.09 Other abnormal glucose (principal)

== ENCOUNTER → 2025-02-07 09:50 | Outpatient (BNVA) | payer MEDICARE, OTHER, SELFPAY | PROVIDERS: PCP Physician Assistant; Visit Provider Physician Assistant | DX: R35.0 Frequency of micturition (principal); N32.89 Other specified disorders of bladder; F41.1 Generalized anxiety disorder; I10 Essential (primary) hypertension; E78.2 Mixed hyperlipidemia; K59.00 Constipation, unspecified; R73.09 Other abnormal glucose | CPT/HCPCS: 83036; 96127; 99212 ==

== ENCOUNTER 2025-02-20 08:41 | Outpatient (AMB) | payer MEDICARE, SELFPAY ==
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
[2025-02-20 08:44] VITALS: BP 120/70; PULSE 69; RESP 20; TEMP 36.1; O2SAT 95
== END 2025-02-20 09:35 | disposition home or self-care (01) ==
PROVIDERS: PCP Physician Assistant
DX: M25.561 Pain in right knee (principal); M25.562 Pain in left knee; G89.29 Other chronic pain; G95.9 Disease of spinal cord, unspecified; M54.9 Dorsalgia, unspecified; M25.521 Pain in right elbow; M25.522 Pain in left elbow

== ENCOUNTER → 2025-02-20 08:41 | Outpatient (BNVA) | payer MEDICARE, SELFPAY | PROVIDERS: PCP Physician Assistant | DX: E04.1 Nontoxic single thyroid nodule (principal); M25.561 Pain in right knee; I10 Essential (primary) hypertension; E78.5 Hyperlipidemia, unspecified; F41.1 Generalized anxiety disorder; E66.9 Obesity, unspecified; M25.562 Pain in left knee; G89.29 Other chronic pain; G95.9 Disease of spinal cord, unspecified; M54.9 Dorsalgia, unspecified; M25.521 Pain in right elbow; M25.522 Pain in left elbow | CPT/HCPCS: 96127; 99212 ==

== ENCOUNTER 2025-04-26 11:00 | Outpatient (AMB) | payer MEDICARE, SELFPAY ==
[2025-04-26 11:04] VITALS: BP 140/100; PULSE 91; RESP 18; TEMP 36.2; O2SAT 94; BMI 34.1
--- NOTE | 2025-04-26 11:04 | A.OFFPC_ITS ---
Vital Signs 04/26/25 11:04 04/26/25 11:10 Height 5 ft 10 in Weight 237 lb 6 oz BMI 34.1 BP 140/100 H 162/98 H Blood Pressure Location Lt brachial Lt brachial Position Sitting Sitting Respiration 18 Pulse 91 Pulse Source Pulse Oximeter Temp 97.1 F Temp Source Temporal Artery Scan Pulse Oximetry (%) 94 Oxygen Delivery Method Room Air Intake Visit Reasons: dental cleaning and extraction- see comm Distribution Dispatcher Required: No Accompanied by: Self / Same As Patient Allergies meloxicam Allergy (Intermediate, Verified 04/26/25 11:24) swelling lisinopril Allergy (Unknown, Verified 04/26/25 11:24) tachycardia amlodipine Adverse Reaction (Intermediate, Verified 04/26/25 11:24) pedal edema atorvastatin Adverse Reaction (Intermediate, Verified 04/26/25 11:24) Swelling hydralazine Adverse Reaction (Intermediate, Verified 04/26/25 11:33) Swelling Medication List - Last Reconciled 04/26/25 by KASHIF oH cyclobenzaprine 5 mg PO BEDTIME PRN diaper,brief,adult,disposable (Briefs, Adult-Extra Large) As directed fluticasone propionate 50 mcg/actuation (Flonase Allergy Relief) 1 spray intranasal DAILY PRN 30 days gabapentin 300 mg PO TID 14 days hydrochlorothiazide 12.5 mg PO DAILY 90 days lidocaine 5% 1 patch topical DAILY methylcellulose (laxative) (Citrucel) 500 mg PO DAILY paroxetine HCl 20 mg PO DAILY 90 days sennosides (senna) 17.2 mg (2 x 8.6 mg) PO BEDTIME 30 days Tobacco use date assessed: 04/26/25 Fall risk assessment: 1 Fall in past year Last assessed Fall Risk: 04/26/25 Dental Screening Dental Screen Date: 04/26/25 Did you have a dental visit in the last 12 months?: Yes Did you have a dental problem in the last 6 months where you did not have access to dental care?: No Was dental information given to patient?: Patient has dentist HPI dental cleaning and extraction- see comm HPI Details The patient is a 69-year-old female who was presenting for preop clearance. She is a patient of LOUISE Dorsey, and was last seen in office on 02/20/2025 by LOUISE Servin. The patient has dental caries and is scheduled to go under dental cleaning and extractions. Surgeon/location: Dr. Pelon Junior at [facility] at [place], [place] Anesthesia: Light IV sedation and deep IV sedation, Versed, fentanyl, propofol The patient reports that she has concerns that she needs to be addressed first The patient reports that her metoprolol was discontinued without her knowledge, which she had been taking for years to manage heart palpitations. She expressed dissatisfaction with the lack of communication regarding this change and is concerned about the potential impact on her heart health. She has a history of hypertension, with previous blood pressure readings of 110/80 mmHg, which have recently increased to 160s/100s mmHg. Despite attempts to manage her blood pressure with lifestyle modifications, including warm water therapy, she has been unable to maintain stable readings. The patient also reports experiencing edema, particularly in her legs, which has been persistent despite the use of hydrochlorothiazide. She reports a known allergy to hydralazine, which causes swelling, and has been advised to avoid it. Additionally, the patient has a history of fibromyalgia, which she reports has improved as the swelling decreased. She also has scoliosis, which has been managed with physical therapy to alleviate back pain. The patient has a history of a pre-stroke condition, which occurred during a period of significant stress at the onset of the ID- pandemic. She has not had a recent cardiology evaluation despite ongoing heart-related concerns. She reports urinary incontinence, which has been significantly improved with the use of Gemtesa, allowing her to discontinue the use of diapers. The patient also has a history of ADD, which she manages with gabapentin, reporting improved cognitive function. Labs and EKG ordered. The patient reports that she wants to be evaluated by cardiology to being put to sleep because she needs to be completely out and the last time they had difficulty trying to wake her up. The patient denied any allergies to anesthia, denies any post surgery hypothermia or clotting disorder and she is not on any blood thinner. [facility] Medical History Colon cancer screening Tubular adenoma COVID-19 COVID-19 vaccine series completed Thyroid nodule Elevated cholesterol HTN (hypertension) Anxiety Hepatitis C IBS (irritable bowel syndrome) Depression with anxiety Onychomycosis Surgical History Ruptured tubal History of removal of cyst Family History Father CHF (congestive heart failure) Diabetes Hypertension Skin cancer Mother Diabetes Hypertension Fibromyalgia Maternal Grandmother TIA (transient ischemic attack) Alzheimers disease Mental health disorder Social History Housing: House Alcohol intake: never Patient Tobacco Use Status: Never used Tobacco Tobacco use type: Cigarette e-Cigarette/Vaping Use: Never Used Second Hand Smoke Exposure: No service: No Current occupational status: disabled 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 1. Little interest or pleasure in doing things: several days 2. Feeling down, depressed, or hopeless: not at all 3. Trouble falling or staying asleep, or sleeping too much: nearly every day 4. Feeling tired or having little energy: nearly every day 5. Poor appetite or overeating: nearly every day 6. Feeling bad about yourself - or that you are a failure or have let yourself or your family down: not at all 7. Trouble concentrating on things, such as reading the newspaper or watching television: several days 8. Moving or speaking so slowly that other people could have noticed. Or the opposite - being so fidgety or restless that you have been moving around a lot more than usual: not at all 9. Thoughts that you would be better off or of hurting yourself in some way: not at all Total score: 11 Depression Screening Interpretation: Positive Depression Screening Follow-up: Existing condition and In treatment Depression Screening Done: Yes Source: Developed by Drs. Will Mckeon, Delia Loving, Guilherme Mchugh and colleagues, with an educational irvin from [employer]. Thrive Questionnaire Date Thrive assessed: 04/26/25 I am a: Patient What is your living situation today?: I have a steady place to live Within the past 12 months, did the food you bought not last and you didn't have the money to get more?: Sometimes True Within the past 12 months, did you worry whether your food would run out before you got money to buy more?: Sometimes True Do you have trouble paying for medicines?: No Do you have trouble getting transportation to medical appointments?: No Do you have trouble paying your heating and electricity bill?: Yes Do you have trouble taking care of your child, family member or friend?: Yes Do you have trouble with day-to-day activities such as bathing, preparing meals, shopping, managing finances, etc.?: Yes Are you currently unemployed and looking for a job?: Yes Are you interested in more education?: Yes Currently or been in a relationship where the following occur: No concerns reported THRIVE Score: 3 AUDIT C Alcohol Use Questionnaire (AUDIT-C) 1. How often do you have a drink containing alcohol?: Never 3. How often do you have six or more drinks on one occasion?: Never Total Score: 0 Score Reviewed/Action Taken: Yes GABRIEL-7 AMB Questionnaire GABRIEL-7 Date GABRIEL - 7 assessed: 04/26/25 Feeling nervous, anxious, or on edge: 2 = More than half the days Not being able to stop or control worryin = Several days Worrying too much about different things: 1 = Several days Trouble relaxin = Several days Being so restless that it is hard to sit still: 0 = Not at all Becoming easily annoyed or irritable: 3 = Nearly every day Feeling afraid as if something awful might happen: 0 = Not at all Total GABRIEL-7 score (0-4 normal; 5-9 mild; 10-14 moderate; 15-21 severe): 8 Source: Developed by Drs. Will Mckeon, Delia Loving, Guilherme Mchugh and colleagues, with an educational irvin from [employer]. GABRIEL-7 Assessment Billing GABRIEL-7 Assessment Tool: GABRIEL-7 Assessment 08967 Review of Systems Const Denies headache(s) Eyes Denies loss of vision ENT Denies vertigo, Denies dizziness, Denies headache(s) and Denies sore throat Card Denies chest pain, Reports rapid heart rate (Reports history of heart palpitation that resolved with metoprolol), Denies leg edema, Denies lightheadedness and Reports dyspnea on exertion Resp Denies cough, Denies hemoptysis, Reports dyspnea on exertion and Denies wheezing GI Denies abdominal pain, Denies melena, Denies constipation, Denies diarrhea and Denies vomiting Denies urinary frequency, Denies dysuria, Reports urinary incontinence (Resolved with treatment) and Denies urinary urgency Musc Denies arthralgias, Reports joint swelling (Right ankle ), Denies numbness and Denies tingling Neuro Denies Abnormal speech present, Denies behavioral changes, Denies vertigo, Denies dizziness, Denies headache(s), Denies loss of vision, Denies memory loss, Denies numbness and Denies tingling Psych Denies anxiety, Denies behavioral changes, Denies depression, Denies memory loss and Denies panic attacks Dominick/Lymph Denies easy bleeding and Denies easy bruising Aller/Immun Denies wheezing Physical exam (Primary Care) Vital Signs: Last Vital Signs Temp 97.1 F 04/26/25 11:04 Pulse 91 04/26/25 11:04 Resp 18 04/26/25 11:04 BP 140/100 H 04/26/25 11:04 Pulse Ox 94 04/26/25 11:04 Oxygen Delivery Method Room Air 04/26/25 11:04 BMI result Body Mass Index 34.1 Tobacco/Smoking Status: Tobacco use Status Tobacco use date assessed 04/26/25 04/26/25 11:16 Patient Tobacco Use Status Never used Tobacco 04/26/25 11:04 Tobacco use type Cigarette 04/26/25 11:04 e-Cigarette/Vaping Use Never Used 04/26/25 11:04 PHQ-9: PHQ-9 Score PHQ-9: Total score 11 04/26/25 11:39 Depression Screening Interpretation: Positive Depression Screening Follow-up: Existing condition and In treatment Thrive Assessment: Date of Thrive Assessment Date Thrive assessed 04/26/25 04/26/25 11:16 Currently or been in a relationship where the following occur: No concerns reported Const General: healthy appearing, no acute distress, alert and awake Nutritional Appearance: well nourished Orientation/consciousness: oriented to person, oriented to place and oriented to time HENMT Ears: TM's normal bilaterally General nose exam: Normal nasal mucous membranes and turbinates present Eyes Conjunctivae: conjunctivae normal Sclerae: sclerae normal Pupils: Equal, round and reactive pupils present Neck Neck: Yes no lymphadenopathy and Yes no JVD Thyroid: Thyroid normal Carotids: no bruits Resp Effort & Inspection: normal respiratory effort and not tachypneic Auscultation: no crackles, no rales, no rhonchi and no wheezes Cardio Rate: regular rate Rhythm: regular rhythm Heart sounds: S1 normal heart sound present, S2 normal heart sound present, no murmurs and normal S1 and S2 GI Palpation (GI): Soft to palpation, nontender, no hepatomegaly and no splenomegaly Auscultation: normal bowel sounds General: Yes no CVA tenderness Back/Spine/Pelvis Back: no CVA tenderness Skin General skin exam: no rashes or lesions noted and dry skin Neuro General: oriented to person, oriented to place and oriented to time Cranial nerves: Yes Equal, round and reactive pupils present Speech: No Abnormal speech present Gait exam (Neuro): Normal gait present Motor exam (neuro): no tremor noted Extrem Right upper extremity: full ROM Left upper extremity: full ROM Right lower extremity: full ROM, lower leg (Trace edema) and ankle (Trace edema) Left lower extremity: full ROM, lower leg (Trace edema) and ankle (Trace edema) Psych Mental Status: mental status grossly normal Speech and movement: Normal speech and movement present Affect: normal affect Attitude: cooperative Thought process: Normal thought process present Coding Level of Care Code Est Pt Level 4 (81910) Diagnoses Preoperative clearance Z01.818 Essential hypertension I10 Hypertension type: essential hypertension Impaired glucose metabolism R73.09 Thyroid nodule E04.1 H/O chronic hepatitis Z87.19 Chronic diarrhea K52.9 Constipation, unspecified constipation type K59.00 Constipation type: unspecified constipation type Fibromyalgia M79.7 SOB (shortness of breath) R06.02 Additional Codes GABRIEL-7 Assessment Billing - GABRIEL-7 Assessment Tool: GABRIEL-7 Assessment 63695 ([id number]) Time Spent (min) 42 Assessment & Plan Assessment & Plan (1) Preoperative clearance: Code(s): Z01.818 - Encounter for other preprocedural examination Category: Medical Plan: Regarding preop clearance, the patient is Not at acceptable risk for proposed surgery. Her blood pressure is not controlled the patient was started back metoprolol and she has another upcoming appt in office on 05/20/25. The patient is also requesting to be evaluated by cardiology before being placed under deep sedation. An electrocardiogram was ordered to further evaluate he status. (2) HTN (hypertension): Code(s): I10 - Essential (primary) hypertension Category: Medical Qualifiers: Hypertension type: essential hypertension Qualified Code(s): I10 - Essential (primary) hypertension Plan: bp 162/98- goal is systolic less than 140 mmhg reinforced low salt diet she is currently taking hydrochlorothiazide 12.5 mg daily. Reports that she is not taking the hydralazine because it causes severe swelling. Metoprolol 25 mg ER daily was restarted. She has an upcoming appt 05/20/25 we will further evaluate then. She is requesting for HTZ to be increased to 25 mg. No recent labs present to evaluate kidney function and electrolytes. Explained to the patient that this could increased later depening on her results. (3) Impaired glucose metabolism: Code(s): R73.09 - Other abnormal glucose Category: Medical Plan: labs ordered to evaluate (4) Thyroid nodule: Code(s): E04.1 - Nontoxic single thyroid nodule Category: Medical Plan: tsh/t4 in 2022 showed euthyroidism TFTs ordered further evaluate (5) H/O chronic hepatitis: Code(s): Z87.19 - Personal history of other diseases of the digestive system Category: Medical Plan: Denies abdominal pain avoid alcohol and meds containing acetamenaphin (6) Chronic diarrhea: Code(s): K52.9 - Noninfective gastroenteritis and colitis, unspecified Category: Medical Plan: Reports that this has been stable (7) Constipation: Code(s): K59.00 - Constipation, unspecified Category: Medical Qualifiers: Constipation type: unspecified constipation type Qualified Code(s): K59.00 - Constipation, unspecified Plan: similar-this has been stable-in the past she used to have fluctuation between constipation and diarrhea (8) Fibromyalgia: Code(s): M79.7 - Fibromyalgia Category: Medical Plan: Encouraged increasing activity level to aid with symptoms Continue gabapentin 300mg TID (9) SOB (shortness of breath): Code(s): R06.02 - Shortness of breath Category: Medical Plan: Lungs clear. Labs, EKG ordered. Echo and cardiology referral placed. Plan The plan includes addressing the patient's hypertension by reinstating metoprolol to manage her blood pressure and heart palpitations. Additionally, c onsidering increasing hydrochlorothiazide dosage to control edema if her electrolytes and kidney function come back normal. The patient will undergo an EKG and echocardiogram to assess her cardiac f unction, given her history of pre-stroke and current cardiovascular concerns. A referral to cardiology will be made for further evaluation and management. The stopped taking aspirin though encouraged to continue this. The patient is advised to continue her current lifestyle modifications, including warm water therapy, to help manage stress and blood pressure. She is also encouraged to maintain her dietary habits and monitor her symptoms closely. Patient was informed and verbally consented to the use of an ambient scribe for clinic note documentation during this visit. Orders: Orders Comprehensive Met. Panel Today E66.09 - Other obesity due to excess calories, E78.2 - Mixed hyperlipidemia, F41.1 - Generalized anxiety disorder, I10 - Essential (primary) hypertension, R06.02 - Shortness of breath, R22.43 - Localized swelling, mass and lump, lower limb, bilateral, R73.09 - Other abnormal glucose, R79.89 - Other specified abnormal findings of blood chemistry, Z68.34 - Body mass index [BMI] 34.0-34.9, adult Hemoglobin A1c Today E66.09 - Other obesity due to excess calories, E78.2 - Mixed hyperlipidemia, F41.1 - Generalized anxiety disorder, I10 - Essential (primary) hypertension, R06.02 - Shortness of breath, R22.43 - Localized swelling, mass and lump, lower limb, bilateral, R73.09 - Other abnormal glucose, R79.89 - Other specified abnormal findings of blood chemistry, Z68.34 - Body mass index [BMI] 34.0-34.9, adult B Type Natriuretic Peptide Today E66.09 - Other obesity due to excess calories, E78.2 - Mixed hyperlipidemia, F41.1 - Generalized anxiety disorder, I10 - Essential (primary) hypertension, R06.02 - Shortness of breath, R22.43 - Localized swelling, mass and lump, lower limb, bilateral, R73.09 - Other abnormal glucose, R79.89 - Other specified abnormal findings of blood chemistry, Z68.34 - Body mass index [BMI] 34.0-34.9, adult Erythrocyte Sedimentation Rate Today E66.09 - Other obesity due to excess calories, E78.2 - Mixed hyperlipidemia, F41.1 - Generalized anxiety disorder, I10 - Essential (primary) hypertension, R06.02 - Shortness of breath, R22.43 - Localized swelling, mass and lump, lower limb, bilateral, R73.09 - Other abnormal glucose, R79.89 - Other specified abnormal findings of blood chemistry, Z68.34 - Body mass index [BMI] 34.0-34.9, adult Prothrombin Time INR Today Z01.818 - Encounter for other preprocedural examination TSH reflex Free T4 Today E66.09 - Other obesity due to excess calories, E78.2 - Mixed hyperlipidemia, F41.1 - Generalized anxiety disorder, I10 - Essential (primary) hypertension, R06.02 - Shortness of breath, R22.43 - Localized swelling, mass and lump, lower limb, bilateral, R73.09 - Other abnormal glucose, R79.89 - Other specified abnormal findings of blood chemistry, Z68.34 - Body mass index [BMI] 34.0-34.9, adult UA CC w/rflx Micro + Cult Today E66.09 - Other obesity due to excess calories, E78.2 - Mixed hyperlipidemia, F41.1 - Generalized anxiety disorder, I10 - Essential (primary) hypertension, R06.02 - Shortness of breath, R22.43 - Localized swelling, mass and lump, lower limb, bilateral, R73.09 - Other abnormal glucose, R79.89 - Other specified abnormal findings of blood chemistry, Z68.34 - Body mass index [BMI] 34.0-34.9, adult Complete Blood Count Auto Diff Today E66.09 - Other obesity due to excess calories, E78.2 - Mixed hyperlipidemia, F41.1 - Generalized anxiety disorder, I10 - Essential (primary) hypertension, R06.02 - Shortness of breath, R22.43 - Localized swelling, mass and lump, lower limb, bilateral, R73.09 - Other abnormal glucose, R79.89 - Other specified abnormal findings of blood chemistry, Z68.34 - Body mass index [BMI] 34.0-34.9, adult Vitamin D 25-OH Total Today E66.09 - Other obesity due to excess calories, E78.2 - Mixed hyperlipidemia, F41.1 - Generalized anxiety disorder, I10 - Essential (primary) hypertension, R06.02 - Shortness of breath, R22.43 - Localized swelling, mass and lump, lower limb, bilateral, R73.09 - Other abnormal glucose, R79.89 - Other specified abnormal findings of blood chemistry, Z68.34 - Body mass index [BMI] 34.0-34.9, adult ECG 12 lead EKG Today E66.09 - Other obesity due to excess calories, E78.2 - Mixed hyperlipidemia, F41.1 - Generalized anxiety disorder, I10 - Essential (primary) hypertension, R06.02 - Shortness of breath, R22.43 - Localized swelling, mass and lump, lower limb, bilateral, R73.09 - Other abnormal glucose, R79.89 - Other specified abnormal findings of blood chemistry, Z68.34 - Body mass index [BMI] 34.0-34.9, adult CRP High Sensitivity Today E66.09 - Other obesity due to excess calories, E78.2 - Mixed hyperlipidemia, F41.1 - Generalized anxiety disorder, I10 - Essential (primary) hypertension, R06.02 - Shortness of breath, R22.43 - Localized swelling, mass and lump, lower limb, bilateral, R73.09 - Other abnormal glucose, R79.89 - Other specified abnormal findings of blood chemistry, Z68.34 - Body mass index [BMI] 34.0-34.9, adult CA echo transthoracic complete Today R06.02 - Shortness of breath, Z01.818 - Encounter for other preprocedural examination Referrals Cardiology Referral I10 - Essential (primary) hypertension, R06.02 - Shortness of breath, Z01.818 - Encounter for other preprocedural examination Medications: New metoprolol succinate ER 25 mg PO DAILY 60 tabs 3RF
[2025-04-26 11:10] VITALS: BP 162/98
--- OUTSIDE RECORDS SUMMARY | 2025-04-26 11:10 | XMS_ITS | Clinical Summary ---
Author Organization [facility] ity Address [address] [place] [address] Care Team Providers Care Coldfusion Name Role Phone Aron Lambert Primary Care Provider [phone] Surgical History Surgery Date Site/Laterality Comments OTHER [...] Vaccine ( - 2023-2 5 season) 2024 Depression Screening 09/12/2024 Influenza Vaccine (#1) 2025 RSV Immunization Adult Patie nts (1 [...] age to complete this topic Care Teams Coldfusion Relationship Specialty Start Date End Date Aron Lambert PA PCP - General Internal Medicine 09/09/20
--- OUTSIDE RECORDS SUMMARY | 2025-04-26 11:11 | XMS_ITS | Clinical Summary ---
Author Organization [facility] Address [address] [place] [address] Care Team Providers Care Cpc Name Role Phone Unavailable Primary Care Provider Unavailabl e Social History Tobacco Use Types Packs/Day Years Used Date Smoking Tobacco: Never Assessed Comments Unknown Sex and Gender Information Value Date Recorded Sex Assigned at Not on file Legal Sex Female 10:13 AM EST Gender Identity Not on file Sexual Orientation Not on file Plan of Treatment Health Maintenance Due Date Last Done Comments Colorectal Cancer: COLONOSCO PY Screening every 10 yrs (or Modifier) 1957 Depression: Screening Annual ly using PHQ-2/9 in Adults 18 yrs or above (or HM Modifier)([facility]) 1975 Hepatitis C Virus Infection in Adolescents and Adults: Screening (or Modifier) ([facility]) [address] [facility] Screening Reminder: Tayler sims for all adults ([facility]) 1975 Tobacco Smoking Cessation: i n Adults excluding Women: Behavioral and Pharmacotherapy Interventions ([facility]) 1975 DTaP/Tdap/Td Vaccines ([facility]) (1 - Tdap) 1976 Colorectal Cancer Screening 45 -75 Yrs (or HM Modifier ) 2002 Colorectal Cancer: FLEXIBLE SIGMOIDOSCOPY Screening every 5 yrs 2002 Colorectal Cancer: Fecal Imm unochemical Test (FIT) Annually [facility] 2002 Colorectal Cancer: High-sens itivity gFOBT Screening Annually [facility] 2002 Colorectal Cancer: Stool Col oguard Screening every 3 yrs 2002 Colorectal Cancer:CT Colonography Screening every 5 yr s 2002 Breast Cancer: Screening Tayler sims age 50-74 yrs (or HM Modifier)([facility]) 2007 Pneumococcal Vaccination Scr eening: Patients 50+ yrs of age ([facility]) (1 of 1 - PCV) 2007 Zoster/Shingles Vaccine Seri es Screening: Adults aged 18+ yrs (or HM Modifiers)([facility]) (1 of 2) 2007 Osteoporosis Screening to Pr event Fractures: Women aged 65 years+ ([facility]) 2022 COVID-19 Vaccine Screening: Initial Series and Booster Status ([facility]) ( - 2023-25 season) 2024 Flu Vaccination: Ages 65+: Y early High Dose Recommended (or Modifier)([facility]) 04/12/2025 RSV Vaccines (1 - 1-dose 75+ series) 2032 [employer] Not on file Insurance PLAN
--- OUTSIDE RECORDS SUMMARY | 2025-04-26 11:11 | XMS_ITS | Encounter Summary ---
Author Organization [facility] Address [address] [facility] [address] [place] [phone] Phone Care Team Providers Care Lace Finisher Name Role Phone Aron Lambert Primary Care Provider + Encounter Details Date Type Department Care Team (Latest Contact Info) Description 03/07/2024 Transcribe Orders [facility] [address] [address] Cindy Perez PA [address] [place] [address] Chronic diarrhea of unknown origin (Primary Dx) Social History Tobacco Use Types Packs/Day Years Used Date Smoking Tobacco: Never Assessed Education Answer Date Recorded Are you interested in more education? Not on [email or web address] e 03/07/2024 Are you concerned about learning? Not on file 03/07/2024 No 03/07/2024 No 03/07/2024 Digital Access Answer Date Recorded No 03/07/2024 No 03/07/2024 Reliable internet access at home? Not on file 03/07/2024 Device with a working camera? Not on file Comments Unknown Sex and Gender Information Value Date Recorded Sex Assigned at Not on file Legal Sex Female 1:39 PM EDT Gender Identity Not on file Sexual Orientation Not on file documented as of this encounter Plan of Treatment Not on file documented as of this encounter Results * Comprehensive metabolic panel (03/07/2024 1:50 PM EDT) SODIUM 142 133 - 146 mmol/L [facility] POTASSIUM 3.6 3.3 - 5.1 mmol/L [facility] CHLORIDE 104 96 - 108 mmol/L [facility] CO2 26 21 - 35 mmol/L [facility] BUN 19 6 - 19 mg/dL [facility] CREATININE 0.70 0.5 - 1.5 mg/dL [facility] GLUCOSE 94 70 - 99 mg/dL [facility] ALBUMIN 4.1 3.9 - 4.8 g/dL [facility] TOTAL PROTEIN 6.6 6.5 - 8.0 g/dL [facility] CALCIUM 8.7 8.4 - 10.3 mg/dL [facility] ALKALINE PHOSPHATASE 102 39 - 117 U/L [facility] TOTAL BILIRUBIN 0.4 0.0 - 1.2 mg/dL [facility] AST 14 0 - 37 U/L [facility] ALT 9 0 - 40 U/L [facility] GLOBULIN 2.5 1 - 4.8 g/dL [facility] EGFR 95 >59 mL/min/1.7 3m2 [facility] Comment:Estimated glomerular filtration rate calculated using the CKD-EPI refit equation. ANION GAP 16 10 - 20 mmol/L [facility] Blood 03/07/2024 1:50 PM EDT 03/07/2024 4:00 PM EDT us Cindy GIL [facility] BLOOD ORDERABLES Final Result [facility] [address] [place] [address] * CBC and differential (03/07/2024 1:50 PM EDT) WBC 5.87 4.00 - 11.00 K/uL [facility] RBC 4.57 3.72 - 5.30 M/uL [facility] HGB 12.8 11.4 - 15.9 g/dL [facility] HCT 38.5 34.2 - 46.8 % [facility] PLT 305 140 - 430 K/uL [facility] MCV 84.2 78.0 - 97.0 fL [facility] MCH 28.0 25.0 - 33.0 pg [facility] MCHC 33.2 32.0 - 36.0 g/dL [facility] RDW 13.2 11.0 - 16.0 % [facility] MPV 10.2 8.4 - 12.8 fl [facility] DIFF METHOD Auto [facility] NEUTS 56.8 43.0 - 75.0 % [facility] LYMPHS 28.4 18.2 - 47.4 % [facility] MONOS 10.4 4.00 - 11.00 % [facility] EOS 3.4 0.0 - 8.0 % [facility] BASOS 0.7 0.0 - 2.0 % [facility] Granulocytes, immature (%) 0.3 0.0 - 0.9 % [facility] ABSOLUTE NEUTS 3.33 1.80 - 7.70 K/uL [facility] ABSOLUTE LYMPHS 1.67 1.00 - 3.10 K/uL [facility] ABSOLUTE MONOS 0.61 0.20 - 0.80 K/uL [facility] ABSOLUTE EOS 0.20 0.00 - 0.80 K/uL [facility] ABSOLUTE BASOS 0.04 0.00 - 0.09 K/uL [facility] Granulocytes, immature 0.02 0.00 - 0.05 K/uL [facility] Blood 03/07/2024 1:50 PM EDT 03/07/2024 4:00 PM EDT us Cindy GIL LAB BLOOD ORDERABLES Final Result [address] [address] * Immunoglobulin A (03/07/2024 1:50 PM EDT) IgA 80 70 - 400 mg/dL [facility] Blood 03/07/2024 1:50 PM EDT 03/07/2024 4:00 PM EDT us Cindy GIL LAB BLOOD ORDERABLES Final Result [address] [address] * Tissue transglutaminase IgA (03/07/2024 1:50 PM EDT) TTG IGA ANTIBODY <1.2 <4.0 (Negative) U/mL [facility] Blood 03/07/2024 1:50 PM EDT 03/08/2024 12:25 PM EDT us Cindy GIL LAB BLOOD ORDERABLES Final Result [facility] [address] [place] [address] documented in this encounter Visit Diagnoses Diagnosis Chronic diarrhea of unknown origin- Primary Diarrhea documented in this encounter Care Teams Lace Finisher Relationship Specialty Start Date End Date Aron Lambert PA [address] [place] [address] PCP - General Physician Trauma Counsellor 03/07/24 documented as of this encounter Additional Source Comments The information contained in this document represents components of the legal health record. It is not the complete legal health record.[facility]
== END 2025-04-26 12:09 | disposition home or self-care (01) ==
LOC: HO.HMCH 11:01
PROVIDERS: PCP Physician Assistant
DX: Z01.818 Encounter for other preprocedural examination (principal); I10 Essential (primary) hypertension; R73.09 Other abnormal glucose; E04.1 Nontoxic single thyroid nodule; Z87.19 Personal history of other diseases of the digestive system; K52.9 Noninfective gastroenteritis and colitis, unspecified; K59.00 Constipation, unspecified; M79.7 Fibromyalgia; R06.02 Shortness of breath

== ENCOUNTER → 2025-04-26 11:00 | Outpatient (BNVA) | payer MEDICARE, SELFPAY | PROVIDERS: PCP Physician Assistant | DX: Z01.818 Encounter for other preprocedural examination (principal); I10 Essential (primary) hypertension; R73.09 Other abnormal glucose; R60.0 Localized edema; M79.7 Fibromyalgia; R32 Unspecified urinary incontinence; E04.1 Nontoxic single thyroid nodule; K52.9 Noninfective gastroenteritis and colitis, unspecified; K59.00 Constipation, unspecified; Z87.19 Personal history of other diseases of the digestive system | CPT/HCPCS: 96127; 99212 ==

== ENCOUNTER → 2025-08-05 12:42 | Outpatient (REF) | payer MEDICARE, SELFPAY ==
--- NOTE | 2025-08-05 12:45 | CA_ITS ---
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 The calculated ejection fraction is 63% by biplane method. - No obvious valvular pathology seen on this study. Findings Left Ventricle Normal left ventricular cavity size. There is mildly increased left ventricular wall thickness. The left ventricular systolic function is normal. The calculated ejection fraction is 63% by biplane method. There is no evidence of regional wall motion abnormalities. Diastolic function is normal for age. Right Ventricle Normal right ventricular cavity size and systolic function. Atria Both atria are normal in size. Aortic Valve There is a normal trileaflet aortic valve. There is no aortic valve stenosis. There is no aortic valve regurgitation. Mitral Valve The mitral valve appears normal. There is no mitral valve regurgitation. There is no mitral valve stenosis. Pulmonic Valve The pulmonic valve is likely normal. Tricuspid Valve Normal tricuspid valve structure. There is trace tricuspid valve regurgitation. There is no evidence of pulmonary hypertension. Great Vessels The asc aorta is normal in size. Venous The inferior vena cava is normal in size and collapses greater than 50% with inspiration. Pericardium/Pleural There is no evidence of pericardial effusion. Prior Study Comparison No prior study available for comparison. Recommendations, Care & Conclusions No obvious valvular pathology seen on this study. Measurements 2D Linear Measurements IVSd: 1.11 0.6-0.9/0.6-1.0 cm LVIDd: 3.95 3.9-5.3/4.2-5.9 cm LVIDd Index: 1.75 2.4-3.2/2.2-3.1 cm/m2 LVIDs: 2.66 2.0-3.6 cm LVPWd: 1.08 0.7-1.1 cm Ao Root: 4.00 2.1-3.5 cm LA Diam: 4.00 2.7-3.8/3.0-4.0 cm LAIDs Index: 1.77 1.5-2.3 cm/m2 LV Mass: 176.64 67-162/88-224 g LV Mass Index: 78.16 43-95/49-115 g/m2 LVOT Diam: 2.30 3.0+(-)1.3 cm 2D Systolic Function EF 4C: 69.90 >55% EF 2C: 56.30 >55% EF BiP: 63.40 >55% Mitral Valve MV Pk E: 0.90 MV PK A: 1.10 MV Decel Time: 230.00 E/A: 0.80 E'Lateral: 9.25 E'Medial: 5.66 E/E' Med: 15.90 E/E' Lat: 9.70 PHT: 67.00 MVA PHT: 3.28 Decel Ness: 3.90 Aortic Valve AoV Pk Sterling: 1.58 AoV Mn Sterling: 1.12 AoV VTI: 0.44 AoV Pk Grad: 10.00 Aov Mn Grad: 6.00 KRISTEN Cont.VTI: 2.77 LVOT LVOT Pk Sterling: 1.09 LVOT Mn Sterling: 0.69 LVOT VTI: 0.29 LVOT Pk Grad: 5.00 LVOT Mn Grad: 2.00 LVOT Diam: 2.30 LVOT Area: 4.15 Diastolic Function MV Pk E: 0.90 MV Pk A: 1.10 E/A: 0.80 E'Medial: 5.66 E/E' Med: 15.90 E' Laterial: 9.25 E/E' Lat: 9.70 Tricuspid Valve TR Pk Sterling: 1.59 TR Pk Grad: 10.00 RA Press: 3.00 RVSP: 13.00 Great Vessels Aorta Ao Root-2D: 4.00 2.0-3.7 cm Ao Asc: 3.40 2.1-3.4 cm Pulmonary Valve PV Pk Sterling: 1.04 Peak PV Grad: 4.00 Updated in Other Vendor System with Status of Final Rene Vergara MD electronically signed on 08/05/2025 4:11:54 PM with status of Final
[2025-08-05 14:45] LABS: MANUAL DIFF FLAG NO
[2025-08-05 15:02] LABS: Hematocrit 37.8 % (37.0-47.0); Hemoglobin 12.8 g/dl (12.0-16.0); Imm Gran Abs Auto 0.03 X10*3/uL (0.00-0.03); Imm Gran Pct Auto 0.4 % (0.0-0.4); Lymphocytes Absolute Auto 1.6 X10*3/uL (1.2-4.9); Mean Corpuscular HGB Conc 33.9 g/dl (31.0-35.0); Mean Corpuscular Hemoglobin 28.6 pg (27.0-33.0); Mean Corpuscular Volume 84.4 fL (80.0-98.0); NRBC Abs Auto 0.000 X10*3/uL (0.0-0.012); NRBC Pct Auto 0.0 /100WBC (0.0-0.2); Platelet Count 306 X10*3/uL (160-400); Red Blood Count 4.48 X10*6/uL (4.20-5.50); White Blood Count 6.7 X10*3/uL (4.8-10.8)
[2025-08-05 15:07] LABS: INTERNATIONAL NORM RATIO 1.0 (0.9-1.1); Prothrombin Time 12.1 SEC (11.2-13.5)
[2025-08-05 15:11] LABS: Appearance Urine Clear; Glucose Urine UA Negative (Negative); PH 6.5 (5.0-9.0); Specific Gravity - Urine 1.020 (1.005-1.025)
[2025-08-05 16:46] LABS: Anion Gap 13 (12-20)
[2025-08-05 16:50] LABS: Alanine Aminotransferase 12 U/L (0-31); Albumin Level 4.0 g/dL (3.5-5.0); Alkaline Phosphatase 80 U/L (39-117); Aspartate Amino Transferase 18 U/L (5-31); Blood Urea Nitrogen 26 mg/dL (9-16); Calcium 9.3 mg/dL (8.4-10.2); Carbon Dioxide 28 mmol/L (22-29); Chloride 106 mmol/L (96-108); Estimated Glomerular Filt Rate > 60; Potassium 3.6 mmol/L (3.3-5.1); Sodium 143 mmol/L (135-145); Total Protein 6.7 g/dL (6.5-8.0)
[2025-08-05 17:13] LABS: Free T4 (Free Thyroxine) 0.97 ng/dL (0.71-1.85)
== END ==
LOC: HO.CARD 12:42
PROVIDERS: PCP Physician Assistant; Referring Provider Physician Assistant
DX: Z01.818 Encounter for other preprocedural examination (principal); R06.02 Shortness of breath; F41.1 Generalized anxiety disorder; I10 Essential (primary) hypertension; E78.2 Mixed hyperlipidemia; R73.09 Other abnormal glucose; R22.43 Localized swelling, mass and lump, lower limb, bilateral; R79.89 Other specified abnormal findings of blood chemistry; E66.09 Other obesity due to excess calories; Z68.34 Body mass index [BMI] 34.0-34.9, adult
CPT/HCPCS: 36415; 80053; 81003; 82306; 83036; 84439; 84443; 85025; 85610; 85652; 86141; 93306

== ENCOUNTER → 2025-08-05 12:45 | Outpatient (BNV) | payer MEDICARE, SELFPAY | PROVIDERS: PCP Physician Assistant; Referring Provider Physician Assistant; Visit Provider Internal Medicine | DX: Z01.810 Encounter for preprocedural cardiovascular examination (principal); R06.02 Shortness of breath | CPT/HCPCS: 93306 ==

== ENCOUNTER 2025-08-12 14:59 | Outpatient (AMB) | payer MEDICARE, SELFPAY ==
--- NOTE | 2025-08-12 15:18 | A.OFFPC_ITS ---
Vital Signs 08/12/25 15:19 Height 5 ft 10 in Weight 249 lb 4 oz BMI 35.8 BP 130/80 Blood Pressure Location Lt brachial Position Sitting Pulse 58 Pulse Source Pulse Oximeter Temp 97.1 F Temp Source Temporal Artery Scan Pulse Oximetry (%) 98 Oxygen Delivery Method Room Air Intake Visit Reasons: PE Intake Note: Patient is here today for a physical. Organic Chemistry Professor Required: No Museum Specialist: Not Required per policy Accompanied by: Self / Same As Patient Allergies meloxicam Allergy (Intermediate, Verified 08/12/25 15:56) swelling lisinopril Allergy (Unknown, Verified 08/12/25 15:56) tachycardia amlodipine Adverse Reaction (Intermediate, Verified 08/12/25 15:56) pedal edema atorvastatin Adverse Reaction (Intermediate, Verified 08/12/25 15:56) Swelling hydralazine Adverse Reaction (Intermediate, Verified 08/12/25 15:56) Swelling Medication List - Last Reconciled 08/12/25 by Aron Lambert PA-C cholecalciferol (vitamin D3) 50 mcg PO DAILY cyclobenzaprine 5 mg PO BEDTIME PRN diaper,brief,adult,disposable (Briefs, Adult-Extra Large) As directed fluticasone propionate 50 mcg/actuation (Flonase Allergy Relief) 1 spray intranasal DAILY PRN 30 days gabapentin 300 mg PO TID 14 days hydrochlorothiazide 12.5 mg PO DAILY 90 days lidocaine 5% 1 patch topical DAILY methylcellulose (laxative) (Citrucel) 500 mg PO DAILY metoprolol succinate ER 25 mg PO DAILY paroxetine HCl 20 mg PO DAILY 90 days sennosides (senna) 17.2 mg (2 x 8.6 mg) PO BEDTIME 30 days Tobacco use date assessed: 08/12/25 Fall risk assessment: No Falls in past year Last assessed Fall Risk: 08/12/25 Dental Screening Dental Screen Date: 04/26/25 HPI PE HPI Details Patient is a 69-year-old female here today for an annual physical . Patient has a past medical history sig nificant for essential hypertension, obesity, Thyroid nodule/ low TSH. Concern--> For the past 4-5 months, the patient has experienced episodes of severe shortness of breath with minimal exertion, such as walking from the car to a building. Otherwise, the patient denies breathing problems and notes good lung capacity while swimming. An echocardiogram was recently performed with a normal ejection fraction of 63% and only mild left ventricular wall thickness. --> She also adds she has noted a cyst o manda her left wrist she has she is interested in getting evaluated. She also is concerned about some skin lesions over her back and upper extremities she would like a Dermatology evaluation. She continues to have lower back pain and is interested in continuing in physical therapy as it has helped her in the past. ? .. ? HTN: Blood pressure slightly elevated today in office. She has been on hydrochlorothiazide which seems to have helped her blood pressure and reduce swelling in her lower extremities.. Report systolic below 130s. Denies any headaches, chest pain, shortness of breath. .. Low TSH: Lab work has shown a low TSH level, indicating hyperthyroidism. The patient has a history of thyroid nodules, with a previous incident where one ruptured and was drained. The patient's mother has a history of thyroid disease. Despite the lab results, the patient is experiencing symptoms consistent with hypothyroidism, such as difficulty losing weight. ? .. ? Anxiety: Report paxil 10mg is working great for her mood swings and agitation. . class 2 Obesity:? Has noted some weight loss since last office visit.? She does report she has been trying to work on diet to reduce her weight. ? .. ? Thyroid nodules:? Patient has lost follow-up with endocrinology. .? Most recent TSH at 0.22 Breast cancer screening:? Need Mammo .. 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 Vaccines:: Up-to-date with COVID vaccine, tetanus vaccine, considering shingles vaccine, needs pneumonia vaccine (declines at this time) [facility] Medical History Colon cancer screening Tubular adenoma COVID-19 COVID-19 vaccine series completed Thyroid nodule Elevated cholesterol HTN (hypertension) Anxiety Hepatitis C IBS (irritable bowel syndrome) Depression with anxiety Onychomycosis Surgical History Ruptured tubal History of removal of cyst Family History Father CHF (congestive heart failure) Diabetes Hypertension Skin cancer Mother Diabetes Hypertension Fibromyalgia Maternal Grandmother TIA (transient ischemic attack) Alzheimers disease Mental health disorder Social History Housing: House Alcohol intake: never Patient Tobacco Use Status: Never used Tobacco Tobacco use type: Cigarette e-Cigarette/Vaping Use: Never Used Second Hand Smoke Exposure: No service: No Current occupational status: disabled 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 Sexual orientation: Straight/Heterosexual Gender identity: Female Cognitive needs: No Hearing needs: No Vision needs: Yes (Glasses) Questionnaire Thrive Questionnaire Date Thrive assessed: 01/31/25 I am a: Patient What is your living situation today?: I have a steady place to live Within the past 12 months, did the food you bought not last and you didn't have the money to get more?: Sometimes True Within the past 12 months, did you worry whether your food would run out before you got money to buy more?: Sometimes True Do you have trouble paying for medicines?: No Do you have trouble getting transportation to medical appointments?: No Do you have trouble paying your heating and electricity bill?: Yes Do you have trouble taking care of your child, family member or friend?: Yes Do you have trouble with day-to-day activities such as bathing, preparing meals, shopping, managing finances, etc.?: Yes Are you currently unemployed and looking for a job?: Yes Are you interested in more education?: Yes Currently or been in a relationship where the following occur: No concerns reported THRIVE Score: 3 GABRIEL-7 AMB Questionnaire GABRIEL-7 Date GABRIEL - 7 assessed: 04/26/25 Source: Developed by Drs. Will Mckeon, Delia Loving, Guilherme Mchugh and colleagues, with an educational irvin from [employer] Review of Systems Const Denies body aches, Denies chills, Denies excessive sweating, Denies fatigue, Denies fever(s) and Denies headache(s) Eyes Denies blurry vision ENT Denies dysphagia, Denies vertigo, Denies dizziness, Denies headache(s), Denies hearing loss and Denies tinnitus Card Denies chest pain, Denies chest pain with activity, Denies syncope, Denies irregular heart rhythm and Denies dyspnea Resp Denies chest congestion, Denies cough, Denies hemoptysis, Denies dyspnea and Denies wheezing GI Denies abdominal pain, Denies melena, Denies hematochezia, Denies coffee ground emesis, Denies dysphagia, Denies diarrhea, Denies nausea and Denies vomiting Denies urinary frequency, Denies dysuria, Denies urinary hesitancy and Denies urinary urgency Musc Denies arthralgias, Denies limited range of motion, Denies muscle cramps and Denies muscle weakness Skin/Breast Denies rash and Denies skin ulcer Neuro Denies Abnormal speech present, Denies confusion, Denies vertigo, Denies d izziness, Denies syncope, Denies headache(s), Denies memory loss and Denies seizure-like activity Psych Denies anxiety, Denies confusion, Denies depression, Denies memory loss, Denies panic attacks and Denies paranoia Endo Denies excessive sweating, Denies fatigue, Denies flushing, Denies polydipsia and Denies polyuria Aller/Immun Denies wheezing Physical exam (Primary Care) Vital Signs: Last Vital Signs Temp 97.1 F 08/12/25 15:19 Pulse 58 08/12/25 15:19 BP 130/80 08/12/25 15:19 Pulse Ox 98 08/12/25 15:19 Oxygen Delivery Method Room Air 08/12/25 15:19 BMI result Body Mass Index 35.8 BMI Assessment/Plan discussion: High BMI High, discussed plan: lifestyle, weight reduction, dietary and physical activity Tobacco/Smoking Status: Tobacco use Status Tobacco use date assessed 08/12/25 08/12/25 15:20 Patient Tobacco Use Status Never used Tobacco 08/12/25 15:20 Tobacco use type Cigarette 08/12/25 15:20 e-Cigarette/Vaping Use Never Used 08/12/25 15:20 Thrive Assessment: Date of Thrive Assessment Date Thrive assessed 01/31/25 08/12/25 15:20 Currently or been in a relationship where the following occur: No concerns reported Const General: cooperative, comfortable, no acute distress, alert and awake; No confusion Orientation/consciousness: oriented to person, oriented to place, patient oriented x3 and No confusion HENMT Head: Yes normocephalic Ears: external ears normal and TM's normal bilaterally Face and sinus: No sinus tenderness Mouth: Normal oral and palatal mucosa present and tongue normal Teeth and gingiva: dentition normal and gingiva normal Throat: Yes posterior oropharynx normal, Yes tonsils normal and Yes uvula midline Eyes Conjunctivae: conjunctivae normal Sclerae: sclerae normal Pupils: Equal, round and reactive pupils present EOM: EOMs intact bilaterally Direct Ophthalmoscopy: No no photophobia Neck Neck: Yes no lymphadenopathy, No tender and Yes no JVD Thyroid: Thyroid normal Carotids: no bruits Chest Chest palpation & inspection: no tenderness Resp Effort & Inspection: normal respiratory effort, no audible wheezes, not labored and no stridor Auscultation: no crackles, no rales, no rhonchi and no wheezes Cardio Jugular venous distension: no JVD Rate: regular rate, not bradycardic and not tachycardic Rhythm: regular rhythm Bruits: no carotid bruits Peripheral pulses: Peripheral pulses 2+ throughout GI Inspection: Yes normal to inspection, No abdominal wall ecchymosis and No visible herniation Palpation (GI): Soft to palpation, nontender, no guarding, not rigid and No hepatosplenomegaly present Auscultation: normoactive bowel sounds General: Yes no CVA tenderness Back/Spine/Pelvis Back: no CVA tenderness and No back tenderness Cervical Spine: cervical ROM normal Thoracic/Lumbar Spine: thoracic and lumbar spine normal to inspection, straight leg raise negative bilaterally, No thoraco-lumbar ROM limited and No lumbar spinal tenderness Skin Lesions: no lesions Rashes: no rashes Wounds: no wounds Neuro General: oriented to person, oriented to place, patient oriented x3, CN's II-XI intact bilaterally and No confusion Cranial nerves: Yes Equal, round and reactive pupils present and Yes Normal accommodation reflex present Cognition (Neuro): normal cognition Speech: No Abnormal speech present Gait exam (Neuro): Normal gait present Motor exam (neuro): 5/5 motor strength present throughout Extrem Right upper extremity: full ROM; no cyanosis Left upper extremity: full ROM; no cyanosis Right lower extremity: no edema Left lower extremity: no edema Psych Appearance: grossly normal Mental Status: mental status grossly normal Affect: normal affect Attitude: cooperative Thought process: Normal thought process present Coding Level of Care Code Est Pt Prev Care >65y(41557) Diagnoses Annual physical exam Z00.00 GABRIEL (generalized anxiety disorder) F41.1 Essential hypertension I10 Hypertension type: essential hypertension Mixed hyperlipidemia E78.2 Hyperlipidemia type: mixed hyperlipidemia Constipation, unspecified constipation type K59.00 Constipation type: unspecified constipation type Encounter for screening mammogram for malignant neoplasm of breast Z12.31 Breast cancer screening modality: mammogram Low TSH level R79.89 Irritable bowel syndrome with constipation K58.1 Lumbar radiculitis M54.16 Skin lesion of back L98.9 Synovial cyst of left wrist M71.332 Assessment & Plan Assessment & Plan (1) Annual physical exam: Code(s): Z00.00 - Encounter for general adult medical examination without abnormal findings Category: Medical Plan: as per HPI (2) GABRIEL (generalized anxiety disorder): Code(s): F41.1 - Generalized anxiety disorder Category: Medical Plan: Patient's anxiety has been elevated as of late due to personal issues and financial issues. She continues with SSRI therapy which has helped her in the past. With the addition of gabapentin she feels her anxiety has been a bit better. (3) HTN (hypertension): Code(s): I10 - Essential (primary) hypertension Category: Medical Qualifiers: Hypertension type: essential hypertension Qualified Code(s): I10 - Essential (primary) hypertension Plan: Patient's blood pressure is elevated today in office. Hydrochlorothiazide has been helpful , she is not interested in starting any new medication, she will continue working on lifestyle and dietary modifications. Goal blood pressures to be below 140/90 (4) HLD (hyperlipidemia): Code(s): E78.5 - Hyperlipidemia, unspecified Category: Medical Qualifiers: Hyperlipidemia type: mixed hyperlipidemia Qualified Code(s): E78.2 - Mixed hyperlipidemia Plan: Patient's most recent lipid panel showing good control over total cholesterol and LDL. Currently her hyperlipidemia is dietary controlled. Goal LDL is to remain below 130 (5) Constipation: Code(s): K59.00 - Constipation, unspecified Category: Medical Qualifiers: Constipation type: unspecified constipation type Qualified Code(s): K59.00 - Constipation, unspecified Plan: For chronic constipation, which appears to be IBS-C, a prescription for Linzess will be sent, and a referral to gastroenterology will be placed for further evaluation. . (6) Screening for breast cancer: Code(s): Z12.39 - Encounter for other screening for malignant neoplasm of breast Category: Medical Qualifiers: Breast cancer screening modality: mammogram Qualified Code(s): Z12.31 - Encounter for screening mammogram for malignant neoplasm of breast Plan: Patient willing to do mammogram (7) Low TSH level: Code(s): R79.89 - Other specified abnormal findings of blood chemistry Category: Medical Plan: Given the discordant finding of a low TSH with symptoms of hypothyroidism, we will continue efforts to secure an appointment with an blocker and cutter contact lens for further evaluation and management guidance; no thyroid medication will be initiated at this time. (8) Irritable bowel syndrome with constipation: Code(s): K58.1 - Irritable bowel syndrome with constipation Category: Medical Plan: As above patient's signs and symptoms of chronic abdominal pain and constipation most consistent with an irritable bowel picture. Will try Linzess. (9) Lumbar radiculitis: Code(s): M54.16 - Radiculopathy, lumbar region Category: Medical Plan: Patient continues to have lower lumbar spine pain and is interested in restarting physical therapy and aquatic therapies to help her with her lower back. (10) Skin lesion of back: Code(s): L98.9 - Disorder of the skin and subcutaneous tissue, unspecified Category: Medical Plan: She has noted some skin lesions over her back and upper extremities, she would like to see a bariatric nurse for evaluation and possible biopsies. (11) Synovial cyst of left wrist: Code(s): M71.332 - Other bursal cyst, left wrist Category: Medical Plan: She has noted a left wrist cyst that is fairly tender to palpation, she is interested in having the cyst removed. Orders: Orders MM screening mammo BI 08/12/25 Z12.31 - Encounter for screening mammogram for malignant neoplasm of breast PT Evaluation and Treatment 08/12/25 M54.16 - Radiculopathy, lumbar region Hemoglobin A1c 08/12/25 R73.09 - Other abnormal glucose Complete Blood Count no Diff 08/12/25 I10 - Essential (primary) hypertension XR lumbar spine 4V min 08/12/25 M54.16 - Radiculopathy, lumbar region PT Evaluation and Treatment 08/12/25 M54.16 - Radiculopathy, lumbar region TSH reflex Free T4 08/12/25 R79.89 - Other specified abnormal findings of blood chemistry Lipid Panel 08/12/25 E78.2 - Mixed hyperlipidemia Comprehensive Cliff. Panel Fast 08/12/25 I10 - Essential (primary) hypertension Microalbumin, Random (w Creat) 08/12/25 I10 - Essential (primary) hypertension Referrals Orthopedics Referral M71.332 - Other bursal cyst, left wrist Dermatology Referral L98.9 - Disorder of the skin and subcutaneous tissue, unspecified Medications: New linaclotide (Linzess) 145 mcg PO DAILY 30 caps 1RF 30 days K59.00 - Constipation, unspecified Refilled gabapentin 300 mg PO TID 42 caps 3RF 14 days B02.29 - Other postherpetic nervous system involvement methylcellulose (laxative) (Citrucel) 500 mg PO DAILY 30 tabs 2RF K59.00 - Constipation, unspecified cyclobenzaprine 5 mg PO BEDTIME PRN 20 tabs 0RF muscle spasm fluticasone propionate 50 mcg/actuation (Flonase Allergy Relief) administer into each nostril 1 spray intranasal DAILY PRN 16 grams 3RF nasal congestion 30 days hydrochlorothiazide 12.5 mg PO DAILY 90 tabs 1RF 90 days I10 - Essential (primary) hypertension lidocaine 5% leave on most painful area for up to 12 hrs 1 patch topical DAILY 30 ea 0RF metoprolol succinate ER 25 mg PO DAILY 60 tabs 3RF paroxetine HCl 20 mg PO DAILY 90 tabs 2RF 90 days Z87.19 - Personal history of other diseases of the digestive system sennosides (senna) 17.2 mg (2 x 8.6 mg) PO BEDTIME 60 caps 2RF 30 days K59.00 - Constipation, unspecified
[2025-08-12 15:19] VITALS: BP 130/80; PULSE 58; TEMP 36.2; O2SAT 98; BMI 35.8
--- OUTSIDE RECORDS SUMMARY | 2025-08-12 18:13 | XMS_ITS | Clinical Summary ---
Author Organization [facility] Address [address] [place] [phone] Phone Care Team Providers Care Lease Out Man Name Role Phone Aron Lambert Primary Care Provider + Social History Tobacco Use Types Packs/Day Years [...] Orientation Not on file Plan of Treatment Not on file Medical Devices Not on file Insurance [employer] P[place] BLUE REPLACEMENT MEDICARE PPO BLUE REPLACEMENT MEDICARE PPO BLUE [place]AC[place] [address] [place] [address] MEDICARE PPO BLUE REPLACEMENT [facility] MEDICARE PPO BLUE REPLACEMENT [facility] MEDICARE PPO BLUE REPLACEMENT Care Teams Lease Out Man Relationship Specialty Start Date End Date Aron Lambert PA [address] [place] [address] PCP - General Physician Swift Tender 03/07/24 Additional Source Comments The information contained in this document represents components of the legal health record. It is not the complete legal health record.[facility]
--- OUTSIDE RECORDS SUMMARY | 2025-08-12 18:13 | XMS_ITS | Clinical Summary ---
Author Organization [facility] [email or web address] [facility] Address [address] [place] [address] Care Team Providers Care Battery Builder Name Role Phone Unavailable Primary Care Provider [...] file Medical Devices Not on file Insurance [employer]
--- OUTSIDE RECORDS SUMMARY | 2025-08-12 18:13 | XMS_ITS | Encounter Summary ---
Author Organization [facility] Address [address] [place] [phone] Phone Care Team Providers Care Beading Installer Name Role Phone Aron Lambert Primary Care Provider + Reason for Referral * Physical Therapy (Routine) - Closed Specialty Diagnoses / Procedures Referred By Manjula shirley Referred To Contact Physical Therapy Diagnoses Encounter for rehabilitation Cindy Perez PA [address] [place] [address] Phone: tel: fax: [facility] [address] [place] [address] Phone: tel: Referral ID Status Reason Start Date Expiration Date Visits Re quested Visits Authorized [id number] Closed 03/12/2024 03/12/2025 1 1 Encounter Details Date Type Department Care Team (Latest Contact Info) Description 03/12/2024 Transcribe Orders [facility] [address] [place] [address] Cindy Perez PA [address] [place] [address] Encounter for rehabilitation (Primary Dx) Social History Tobacco Use Types [...] as of this encounter Plan of Treatment Scheduled Referrals Name Type Priority Associated Diagnoses Orde r Schedule Ambulatory referral to [facility] Physical Therapy Outpatient Referral Routine Encounter for rehabilitation Ordered: 03/12/2024 documented as of this encounter Visit Diagnoses Diagnosis Encounter for rehabilitation- Primary documented in this encounter Care Teams Beading Installer Relationship Specialty Start Date End Date Aron Lambert PA [address] [place] [address] PCP - General Physician Instructor Traffic Safety 03/07/24 documented as of this encounter Additional Source Comments The information contained in this document represents components of the legal health record. It is not the complete legal health record.[facility]
--- OUTSIDE RECORDS SUMMARY | 2025-08-12 18:13 | XMS_ITS | Clinical Summary ---
Author Organization [facility] ity Address [address] [place] [address] Care Team Providers Care Rehab Nurse Name Role Phone Aron Lambert Primary Care Provider [phone] Surgical History Surgery Date Site/Laterality Comments OTHER [...] 2007 Zoster Vaccines (1 of 2) 2007 Depression Screening 09/12/2024 COVID-19 Vaccine ( - 2024-2 6 season) 2025 Influenza Vaccine (#1) 2025 RSV Immunization Adult [...] age to complete this topic Care Teams Rehab Nurse Relationship Specialty Start Date End Date Aron Lambert PA PCP - General Internal Medicine 09/09/20
--- OUTSIDE RECORDS SUMMARY | 2025-08-12 18:13 | XMS_ITS | Encounter Summary ---
Author Organization [facility] Address [address] [place] [phone] Phone Care Team Providers Care Speech Instructor Name Role Phone Aron Lambert Primary Care Provider + Encounter Details Date Type Department Care Team (Latest Contact Info) Description 03/07/2024 Transcribe Orders [facility] [address] [address] Cindy Perez PA [address] [place] [address] Chronic diarrhea of unknown origin (Primary Dx) [...] EDT) SODIUM 142 133 - 146 mmol/L [facility] POTASSIUM 3.6 3.3 - 5.1 mmol/L [facility] CHLORIDE 104 96 - 108 mmol/L [facility] CO2 26 21 - 35 mmol/L [facility] BUN 19 6 - 19 mg/dL [facility] CREATININE 0.70 0.5 - 1.5 mg/dL [facility] GLUCOSE 94 70 - 99 mg/dL [facility] ALBUMIN 4.1 3.9 - 4.8 g/dL [facility] TOTAL PROTEIN 6.6 6.5 - 8.0 g/dL [facility] CALCIUM 8.7 8.4 - 10.3 mg/dL [facility] ALKALINE PHOSPHATASE 102 39 - 117 U/L [facility] TOTAL BILIRUBIN 0.4 0.0 - 1.2 mg/dL [facility] AST 14 0 - 37 U/L [facility] ALT 9 0 - 40 U/L [facility] GLOBULIN 2.5 1 - 4.8 g/dL [facility] EGFR 95 >59 mL/min/1.7 3m2 [facility] Comment:Estimated glomerular filtration rate calculated using the CKD-EPI refit equation. ANION GAP 16 10 - 20 mmol/L [facility] Blood 03/07/2024 1:50 PM EDT 03/07/2024 4:00 PM EDT us Cindy GIL LAB BLOOD BKR ORDERABLES Fi nal Result [facility] [address] [place] [address] * CBC and differential (03/07/2024 1:50 PM EDT) WBC 5.87 4.00 - 11.00 K/uL [facility] RBC 4.57 3.72 - 5.30 M/uL [facility] HGB 12.8 11.4 - 15.9 g/dL [facility] HCT 38.5 34.2 - 46.8 % [facility] PLT 305 140 - 430 K/uL [facility] MCV 84.2 78.0 - 97.0 fL [facility] MCH 28.0 25.0 - 33.0 pg [facility] MCHC 33.2 32.0 - 36.0 g/dL [facility] RDW 13.2 11.0 - 16.0 % [facility] MPV 10.2 8.4 - 12.8 fl [facility] DIFF METHOD Auto [facility] NEUTS 56.8 43.0 - 75.0 % [facility] LYMPHS 28.4 18.2 - 47.4 % [facility] MONOS 10.4 4.00 - 11.00 % [facility] EOS 3.4 0.0 - 8.0 % [facility] BASOS 0.7 0.0 - 2.0 % [facility] Granulocytes, immature (%) 0.3 0.0 - 0.9 % [facility] ABSOLUTE NEUTS 3.33 1.80 - 7.70 K/uL [facility] ABSOLUTE LYMPHS 1.67 1.00 - 3.10 K/uL [facility] ABSOLUTE MONOS 0.61 0.20 - 0.80 K/uL [facility] ABSOLUTE EOS 0.20 0.00 - 0.80 K/uL [facility] ABSOLUTE BASOS 0.04 0.00 - 0.09 K/uL [facility] Granulocytes, immature 0.02 0.00 - 0.05 K/uL [facility] Blood 03/07/2024 1:50 PM EDT 03/07/2024 4:00 PM EDT us Cindy GIL LAB BLOOD BKR ORDERABLES Fi nal Result Performing Organization Address City/[facility]/ZIP Co de Phone Number [address] [phone] * Immunoglobulin A (03/07/2024 1:50 PM EDT) IgA 80 70 - 400 mg/dL [facility] Blood 03/07/2024 1:50 PM EDT 03/07/2024 4:00 PM EDT Cindy GIL LAB BLOOD BKR ORDERABLES Fi nal Result Performing Organization Address City/[facility] Co de Phone Number [address] [place] [address] * Tissue transglutaminase IgA (03/07/2024 1:50 PM EDT) TTG IGA ANTIBODY <1.2 <4.0 (Negative) U/mL [facility] Blood 03/07/2024 1:50 PM EDT 03/08/2024 12:25 PM EDT us Cindy GIL LAB BLOOD BKR ORDERABLES Fi nal Result [facility] [address] [place] [address] documented in this encounter Visit Diagnoses Diagnosis Chronic diarrhea of unknown origin- Primary Diarrhea documented in this encounter Care Teams Speech Instructor Relationship Specialty Start Date End Date Aron Lambert PA [address] [place] [phone] PCP - General Physician [employer] Supervisor 03/07/24 documented as of this encounter Additional Source Comments The information contained in this document represents components of the legal health record. It is not the complete legal health record.[facility]
== END 2025-08-12 16:40 | disposition home or self-care (01) ==
LOC: HO.HMCH 15:00
PROVIDERS: PCP Physician Assistant; Visit Provider Physician Assistant
DX: Z00.00 Encounter for general adult medical examination without abnormal findings (principal); F41.1 Generalized anxiety disorder; I10 Essential (primary) hypertension; E78.2 Mixed hyperlipidemia; K59.00 Constipation, unspecified; Z12.31 Encounter for screening mammogram for malignant neoplasm of breast; R79.89 Other specified abnormal findings of blood chemistry; K58.1 Irritable bowel syndrome with constipation; M54.16 Radiculopathy, lumbar region; L98.9 Disorder of the skin and subcutaneous tissue, unspecified; M71.332 Other bursal cyst, left wrist

== ENCOUNTER → 2025-08-12 14:59 | Outpatient (BNVA) | payer MEDICARE, SELFPAY | PROVIDERS: PCP Physician Assistant; Visit Provider Physician Assistant | DX: Z00.00 Encounter for general adult medical examination without abnormal findings (principal); R06.02 Shortness of breath; M71.332 Other bursal cyst, left wrist; I10 Essential (primary) hypertension; E05.90 Thyrotoxicosis, unspecified without thyrotoxic crisis or storm; F41.9 Anxiety disorder, unspecified; E66.812 Obesity, class 2; E04.1 Nontoxic single thyroid nodule; F41.1 Generalized anxiety disorder; E78.2 Mixed hyperlipidemia; K59.00 Constipation, unspecified; R79.89 Other specified abnormal findings of blood chemistry; K58.1 Irritable bowel syndrome with constipation; M54.16 Radiculopathy, lumbar region; Z68.35 Body mass index [BMI] 35.0-35.9, adult | CPT/HCPCS: 99397 ==